=== PATIENT | male | born 1970 | race Caucasian/White ===

== ENCOUNTER 2016-09-18 13:38 | Inpatient (IN) | payer OTHER ==
[2016-09-18 15:27] VITALS: BMI 20.9
--- NOTE | 2016-09-18 17:05 | HP ---
CIWA Score - CIWA Score Nausea/Vomitin-Mild Nausea/No Vomiting Muscle Tremors: 4-Moderate,w/Arms Extend Anxiety: 4-Mod. Anxious/Guarded Agitation: 4-Moderately Restless Paroxysmal Sweats: 1-Minimal Palms Moist Orientation: 1-Uncertain about Date Tacttile Disturbances: 0-None Auditory Disturbances: 2-Mild Harshness/Frighten Visual Disturbances: 0-None Headache: 3-Moderate CIWA-Ar Total Score: 20 Admission ROS BHS - HPI Chief Complaint: withdrawal sx Allergies/Adverse Reactions: Allergies Allergy/AdvReac Type Severity Reaction Status Date / Time No Known Allergies Allergy Verified 09/18/16 16:00 History of Present Illness: 46 years old male with long history of alcohol cocaine marijuan nicotine dependence, has gerd and bipolar ii on methadone maintenance program 130 mg verification pending, is admitted to detox Exam Limitations: No Limitations - Ebola screening Have you traveled outside of the country in the last 21 days: No Have you had contact with anyone from an Ebola affected area: No Have you been sick,other than usual withdrawal symptoms: No Do you have a fever: No - Review of Systems Constitutional: Chills, Loss of Appetite, Changes in sleep, Unintentional Wgt. Loss, Unexplained wgt Loss EENT: reports: No Symptoms Reported Respiratory: reports: No Symptoms reported Cardiac: reports: No Symptoms Reported GI: reports: Nausea, Poor Appetite, Poor Fluid Intake, Indigestion, Abdominal cramping : reports: No Symptoms Reported Musculoskeletal: reports: Back Pain, Joint Pain, Muscle Pain, Neck Pain Integumentary: reports: Erythema (both hands) Neuro: reports: Seizure (about 25 seizure, last episode two months ago), Tremors Endocrine: reports: No Symptoms Reported Hematology: reports: No Symptoms Reported Psychiatric: reports: Judgement Intact, Anxious, Depressed Other Systems: Reviewed and Negative Patient History - Patient Medical History Hx Anemia: No Hx Asthma: No Hx Chronic Obstructive Pulmonary Disease (COPD): No Hx Cancer: No Hx Cardiac Disorders: No Hx Congestive Heart Failure: No Hx Hypertension: No Hx Hypercholesterolemia: No Hx Pacemaker: No HX Cerebrovascular Accident: No Hx Seizures: Yes (etoh seizures last 2 months ago) Hx Dementia: No Hx Diabetes: No Hx Gastrointestinal Disorders: No Hx Liver Disease: No Hx Genitourinary Disorders: No Hx Sexually Transmitted Disorders: No Hx Renal Disease (ESRD): No Hx Thyroid Disease: No Hx Human Immunodeficiency Virus (HIV): No (last 03/29) Hx Hepatitis C: No Hx Depression: No Hx Suicide Attempt: No Hx Bipolar Disorder: Yes Hx Schizophrenia: No - Patient Surgical History Past Surgical History: No - PPD History Previous Implant?: Yes Documented Results: Negative w/proof Implanted On Prior [facility] Admission?: Yes Date: 05/31/16 Results: 0 mm PPD to be Administered?: No - Smoking Cessation Smoking history: Current every day smoker Have you smoked in the past 12 months: Yes Aproximately how many cigarettes per day: 20 Cigars Per Day: 0 Hx Chewing Tobacco Use: No Initiated information on smoking cessation: Yes 'Breaking Loose' booklet given: 09/18/16 - Substance & Tx. History Hx Alcohol Use: Yes Hx Substance Use: Yes Substance Use Type: Alcohol, Cocaine, Heroin, Marijuana Hx Substance Use Treatment: Yes - Substances Abused Alcohol Route: Oral Frequency: Daily Amount used: 12-15 beersx 24oz Age of first use: 14 Date of Last Use: 09/18/16 Cocaine Route: Inhalation Frequency: 1-2 times per week Amount used: $100 and up Age of first use: 17 Date of Last Use: 09/16/16 Marijuana/Hashish Route: Smoking Frequency: 1-3 times last 30 days Amount used: 1 joint Age of first use: 14 Date of Last Use: 09/18/16 Family Disease History - Family Disease History Family Disease History: Other: Grandparent (alcohol,), Father (alcohol, ) Admission Physical Exam S - Vital Signs Vital Signs: Vital Signs - 24 hr 09/18/16 15:26 Temperature 97.3 F L Pulse Rate 81 Respiratory 18 Rate Blood Pressure 117/63 - Physical General Appearance: Yes: Appropriately Dressed, Moderate Distress, Thin, Tremorous, Irritable, Sweating, Anxious HEENTM: Yes: Hearing grossly Normal, Normal ENT Inspection, Normocephalic, Normal Voice Respiratory: Yes: Chest Non-Tender, Lungs Clear, Normal Breath Sounds, No Respiratory Distress, No Accessory Muscle Use Neck: Yes: Supple, Trachea in good position Breast: Yes: Breasts Symetrical, Surgical Scar Cardiology: Yes: Regular Rhythm, S1, S2 Abdominal: Yes: Non Tender, Soft Genitourinary: Yes: Within Normal Limits Back: Yes: Normal Inspection Musculoskeletal: Yes: full range of Motion, Gait Steady Extremities: Yes: Normal Range of Motion, Non-Tender, Tremors Neurological: Yes: Alert, Motor Strength 5/5, Normal Response, Depressed Affect Integumentary: Yes: Warm Lymphatic: Yes: Within Normal Limits - Diagnostic (1) Alcohol dependence with uncomplicated withdrawal Current Visit: Yes Status: Acute (2) Methadone maintenance therapy patient Current Visit: Yes Status: Acute Comment: 130 mg verificaiton pending (3) Nicotine dependence Current Visit: Yes Status: Acute Qualifiers: Nicotine product type: cigarettes Substance use status: in withdrawal Qualified Code(s): F17.213 - Nicotine dependence, cigarettes, with withdrawal (4) GERD (gastroesophageal reflux disease) Current Visit: Yes Status: Acute Qualifiers: Esophagitis presence: without esophagitis Qualified Code(s): K21.9 - Gastro-esophageal reflux disease without esophagitis (5) Bipolar II disorder Current Visit: Yes Status: Suspected Comment: pinky (6) Cocaine dependence, uncomplicated Current Visit: Yes Status: Chronic (7) Cannabis dependence, uncomplicated Current Visit: Yes Status: Chronic (8) Alcohol related seizure Current Visit: Yes Status: Chronic Comment: x 25 by history last episode 2 months ago begin neurontin (9) Neuropapillitis Current Visit: Yes Status: Acute Comment: arms and legs alcohol related begin neurontin Cleared for Admission [facility] - Detox or Rehab [facility] Level of Care: Medically Managed Detox Regimen/Protocol: Valium [facility] Breath Alcohol Content Breath Alcohol Content: 0 Urine Drug Screen - Results Drug Screen Negative: No Urine Drug Screen Results: THC-Marijuana, JAXON-Cocaine, MTD-Methadone
[2016-09-18] MEDS ORDERED: MENTHOL/PHENOL 1 EACH UD MM PRN (17:09)
[2016-09-18] MEDS ORDERED: diphenhydrAMINE HCL 50 MG CAPSULE PO PRN (17:09)
[2016-09-18] MEDS ORDERED: MAGNESIUM CITRATE 300 ML BOTTLE PO PRN (17:09)
[2016-09-18] MEDS ORDERED: guaiFENesin/D-METHORPHAN HB 10 ML UNIT-DOSE CUPS PO PRN (17:09)
[2016-09-18] MEDS ORDERED: MAGNESIUM HYDROX 2400MG/30ML ORAL SUSPENSION 30 ML CUP PO PRN (17:09)
[2016-09-18] MEDS ORDERED: ACETAMINOPHEN 325 MG TABLET (FP) PO PRN (17:09)
[2016-09-18] MEDS ORDERED: P-EPHED 60MG/TRIPROLIDI 2.5MG TABLET PO PRN (17:09)
[2016-09-18] MEDS ORDERED: MAG HYDROX/AL HYDROX/SIMETH 30 ML UNIT-DOSE CUP PO PRN (17:09)
[2016-09-18] MEDS ORDERED: LOPERAMIDE HCL 2 MG CAPSULE PO PRN (17:09)
[2016-09-18] MEDS ORDERED: diazePAM 5 MG TABLET PO ONE (18:15)
[2016-09-18] MEDS: cloNIDine HCL 0.1 MG TABLET PO PRN (19:05)
[2016-09-18] MEDS: NICOTINE POLACRILEX 4 MG GUM BC PRN ×2 (19:31→22:34)
[2016-09-18] MEDS: THIAMINE HCL 100 MG TABLET (FP) PO SCH (22:32)
[2016-09-18] MEDS: RANITIDINE HCL 150 MG TABLET (FP) PO SCH (22:32)
[2016-09-18] MEDS: GABAPENTIN 100 MG CAPSULE (FP) PO SCH (22:32)
[2016-09-18] MEDS: diazePAM 5 MG TABLET PO SCH (22:32)
[2016-09-19] MEDS: diazePAM 5 MG TABLET PO PRN ×3 (02:09→17:30)
[2016-09-19] MEDS: GABAPENTIN 100 MG CAPSULE (FP) PO SCH ×3 (05:56→22:59)
[2016-09-19] MEDS: diazePAM 5 MG TABLET PO SCH ×3 (05:56→22:59)
[2016-09-19] MEDS ORDERED: METHADONE HCL 40 MG DISPERSABLE TABLET PO SCH (08:00)
--- NOTE | 2016-09-19 08:57 | CONSULT ---
[facility] Psychiatric Consult - Data Date of interview: 09/19/16 Admission source: [facility] Identifying data: This is 46 years old male with history of MDD, Bipol;ar disorder, intoxicated with : Alcohol, Cannbais, Nicotine, Opioids Substance Abuse History: - Smoking Cessation. Smoking history: Current every day smoker. Have you smoked in the past 12 months: Yes. Aproximately how many cigarettes per day: 20. Cigars Per Day: 0. Hx Chewing Tobacco Use: No. Initiated information on smoking cessation: Yes. 'Breaking Loose' booklet given : 09/18/16. - Substance & Tx. History. Hx Alcohol Use: Yes. Hx Substance Use : Yes. Substance Use Type: Alcohol, Cocaine, Heroin, Marijuana. Hx Substance Use Treatment: Yes. - Substances Abused. Alcohol. Route: Oral. Frequency : Daily. Amount used: 12-15 beersx 24oz. Age of first use: 14. Date of Last Use: 09/18/16. Cocaine. Route: Inhalation. Frequency: 1-2 times per week. Amount used: $100 and up. Age of first use: 17. Date of Last Use: 09/16/16. Marijuana/Hashish. Route: Smoking. Frequency: 1-3 times last 30 days. Amount used: 1 joint. Age of first use: 14. Date of Last Use: 09/18/16 Medical History: MMTO, GERD, neurosyphilis history Psychiatric History: Patient reports history of MDD and Bipolar disorder with most recent posychiatric hospitalization on more then 5 years ago, reports currently stable on: Abilify 10mg poqd. Celexa 40mg poqd Physical/Sexual Abuse/Trauma History: Denies Additional Comment: Abilify 10mg poqd. Celexa 40mg poqd Mental Status Exam - Mental Status Exam Alert and Oriented to: Person Cognitive Function: Fair Patient Appearance: Well Groomed, Unkempt Mood: Angry Affect: Flat Patient Behavior: Sedated Speech Pattern: Appropriate, Delayed Voice Loudness: Normal Thought Process: Goal Oriented Thought Disorder: Being Controlled Hallucinations: Denies Suicidal Ideation: Denies Homicidal Ideation: Denies Insight/Judgement: Fair Sleep: Difficulty falling asleep Appetite: Weight loss Muscle strength/Tone: Normal Gait/Station: Normal Additional Comments: Abilify 10mg poqd. Celexa 40mg poqd Psychiatric Findings - Problem List ([place] 1, 2,3) (1) Alcohol dependence with uncomplicated withdrawal Current Visit: Yes Status: Acute (2) Methadone maintenance therapy patient Current Visit: Yes Status: Acute Comment: 130 mg verificaiton pending (3) Nicotine dependence Current Visit: Yes Status: Acute Qualifiers: Nicotine product type: cigarettes Substance use status: in withdrawal Qualified Code(s): F17.213 - Nicotine dependence, cigarettes, with withdrawal (4) Alcohol related seizure Current Visit: Yes Status: Chronic Comment: x 25 by history last episode 2 months ago begin neurontin (5) Cannabis dependence, uncomplicated Current Visit: Yes Status: Chronic (6) Cocaine dependence, uncomplicated Current Visit: Yes Status: Chronic (7) Bipolar II disorder Current Visit: Yes Status: Suspected Comment: pinky (8) Cocaine dependence Current Visit: No Status: Acute (9) MDD (major depressive disorder) Current Visit: No Status: Acute (10) Substance-induced sleep disorder Current Visit: No Status: Acute (11) Substance induced mood disorder Current Visit: No Status: Suspected - Initial Treatment Plan Initial Treatment Plan: Abilify 10mg poqd. Celexa 40mg poqd
[2016-09-19] MEDS ORDERED: METHADONE HCL 10 MG TABLET ONE (09:43)
[2016-09-19] MEDS ORDERED: METHADONE HCL 40 MG DISPERSABLE TABLET ONE (09:43)
--- NOTE | 2016-09-19 10:00 | PN ---
S CIWA - CIWA Score Nausea/Vomitin Muscle Tremors: 3 Anxiety: 3 Agitation: 2 Paroxysmal Sweats: 1-Minimal Palms Moist Orientation: 0-Oriented Tacttile Disturbances: 1-Very Mild Itch/Numbness Auditory Disturbances: 1-Very Mild Visual Disturbances: 1-Very Mild Sensitivity Headache: 2-Mild CIWA-Ar Total Score: 17 BHS Progress Note (SOAP) Subjective: ALERT,IRRITABLE,ANXIOUS,INTERRUPTED SLEEP,TREMOR,PAIN IN THE BODY AND BACK Objective: 09/19/16 09:58 Vital Signs Temperature 97.2 F L 09/19/16 09:43 Pulse Rate 71 09/19/16 09:43 Respiratory Rate 18 09/19/16 09:43 Blood Pressure 108/70 09/19/16 09:43 O2 Sat by Pulse Oximetry (%) EKG NSR,NORMAL ECG LABS PENDING Assessment: 09/19/16 09:59 WITHDRAWAL SYMPTOM Plan: CONTINUE DETOX
[2016-09-19 10:08] LABS: MCH 30.5 pg (25.7-33.7); MCHC 32.8 g/dl (32.0-35.9); MEAN CELL VOLUME 93.2 fl (80-96); MEAN PLT VOLUME 9.7 fl (7.5-11.1); PLATELET COUNT 158 K/MM3 (134-434); RDW 14.1 % (11.9-15.9)
[2016-09-19 10:09] LABS: ALBUMIN 3.2 g/dl (3.4-5.0); ALK PHOS 61 U/L (45-117); ANION GAP 7 (8-16); BILIRUBIN,TOTAL 0.3 mg/dL (0.2-1.0); CALCIUM 9.2 mg/dL (8.5-10.1); CO2 29 mmol/L (21-32); CREATININE 0.9 mg/dL (0.7-1.3); GLUCOSE,RANDOM 110 mg/dL (74-106); SGOT/AST 9 U/L (15-37); SGPT/ALT 13 U/L (12-78); TOT PROT 6.2 g/dl (6.4-8.2)
[2016-09-19] MEDS: NICOTINE 21 MG/24 HOURS TOPICAL PATCH TD SCH (10:52)
[2016-09-19] MEDS: PRENATAL VITAMINS W/ FOLIC ACID TABLET (FP) PO SCH (10:53)
[2016-09-19] MEDS: CITALOPRAM HYDROBROMIDE 20 MG TABLET (FP) PO SCH (10:53)
[2016-09-19] MEDS: METHADONE 120 MG, METHADONE 10 MG PO SCH (10:54)
[2016-09-19] MEDS: ARIPiprazole 10 MG TABLET PO SCH (10:54)
[2016-09-19] MEDS: RANITIDINE HCL 150 MG TABLET (FP) PO SCH ×2 (10:54→22:59)
[2016-09-19] MEDS: cloNIDine HCL 0.1 MG TABLET PO PRN ×2 (12:35→22:59)
--- NOTE | 2016-09-19 15:58 | EKG ---
Test Reason : Blood Pressure : / mmHG Vent. Rate : 071 BPM Atrial Rate : 071 BPM P-R Int : 174 ms QRS Dur : 100 ms QT Int : 414 ms P-R-T Axes : 052 061 042 degrees QTc Int : 449 ms NORMAL SINUS RHYTHM NORMAL ECG NO PREVIOUS ECGS AVAILABLE Confirmed by EMILI NAJERA MD ([id number]) on 09/19/2016 3:58:17 PM Referred By: Confirmed By:EMILI NAJERA MD
[2016-09-19] MEDS: THIAMINE HCL 100 MG TABLET (FP) PO SCH (22:59)
[2016-09-20] MEDS: diazePAM 5 MG TABLET PO PRN ×2 (02:56→18:08)
[2016-09-20] MEDS ORDERED: METHADONE HCL 40 MG DISPERSABLE TABLET ONE (05:10)
[2016-09-20] MEDS ORDERED: METHADONE HCL 10 MG TABLET ONE (05:10)
[2016-09-20] MEDS: GABAPENTIN 100 MG CAPSULE (FP) PO SCH ×3 (05:51→22:42)
[2016-09-20] MEDS: METHADONE 120 MG, METHADONE 10 MG PO SCH (05:51)
[2016-09-20] MEDS ORDERED: CYCLOBENZAPRINE HCL 10 MG TABLET (FP) PO PRN (10:26)
[2016-09-20] MEDS ORDERED: CYCLOBENZAPRINE HCL 10 MG TABLET (FP) PO ONE (10:26)
--- NOTE | 2016-09-20 10:26 | PN ---
[facility] CIWA - CIWA Score Nausea/Vomitin Muscle Tremors: 3 Anxiety: 3 Agitation: 2 Paroxysmal Sweats: 1-Minimal Palms Moist Orientation: 0-Oriented Tacttile Disturbances: 1-Very Mild Itch/Numbness Auditory Disturbances: 1-Very Mild Visual Disturbances: 1-Very Mild Sensitivity Headache: 2-Mild CIWA-Ar Total Score: 17 BHS Progress Note (SOAP) Subjective: ALERT,IRRITABLE,ANXIOUS,INTERRUPTED SLEEP,TREMOR,PAIN IN THE BODY AND BACK Objective: 09/20/16 10:25 Vital Signs Temperature 99.3 F 09/20/16 10:00 Pulse Rate 83 09/20/16 10:00 Respiratory Rate 18 09/20/16 10:00 Blood Pressure 102/72 09/20/16 10:00 O2 Sat by Pulse Oximetry (%) Laboratory Last Values WBC 7.0 K/mm3 (4.0-10.0) D 09/19/16 07:00 RBC 4.30 M/mm3 (4.00-5.60) 09/19/16 07:00 Hgb 13.1 GM/dL (11.7-16.9) 09/19/16 07:00 Hct 40.1 % (35.4-49) 09/19/16 07:00 MCV 93.2 fl (80-96) 09/19/16 07:00 MCHC 32.8 g/dl (32.0-35.9) 09/19/16 07:00 RDW 14.1 % (11.9-15.9) 09/19/16 07:00 Plt Count 158 K/MM3 (134-434) 09/19/16 07:00 MPV 9.7 fl (7.5-11.1) 09/19/16 07:00 Sodium 141 mmol/L (136-145) 09/19/16 07:00 Potassium 4.0 mmol/L (3.5-5.1) 09/19/16 07:00 Chloride 105 mmol/L (98-107) 09/19/16 07:00 Carbon Dioxide 29 mmol/L (21-32) 09/19/16 07:00 Anion Gap 7 (8-16) L 09/19/16 07:00 BUN 16 mg/dL (7-18) 09/19/16 07:00 Creatinine 0.9 mg/dL (0.7-1.3) 09/19/16 07:00 Creat Clearance w eGFR > 60 (>60) 09/19/16 07:00 Random Glucose 110 mg/dL (74-106) H D 09/19/16 07:00 Calcium 9.2 mg/dL (8.5-10.1) 09/19/16 07:00 Total Bilirubin 0.3 mg/dL (0.2-1.0) D 09/19/16 07:00 AST 9 U/L (15-37) L D 09/19/16 07:00 ALT 13 U/L (12-78) D 09/19/16 07:00 Alkaline Phosphatase 61 U/L (45-117) D 09/19/16 07:00 Total Protein 6.2 g/dl (6.4-8.2) L 09/19/16 07:00 Albumin 3.2 g/dl (3.4-5.0) L 09/19/16 07:00 RPR Titer Nonreactive (NONREACTIVE) 09/19/16 07:00 Assessment: 09/20/16 10:25 WITHDRAWAL SYMPTOM Plan: CONTINUE DETOX
[2016-09-20] MEDS: NICOTINE 21 MG/24 HOURS TOPICAL PATCH TD SCH (10:57)
[2016-09-20] MEDS: PRENATAL VITAMINS W/ FOLIC ACID TABLET (FP) PO SCH (10:58)
[2016-09-20] MEDS: cloNIDine HCL 0.1 MG TABLET PO PRN (11:01)
[2016-09-20] MEDS: diazePAM 5 MG TABLET PO SCH ×2 (11:02→22:42)
[2016-09-20] MEDS: hydrOXYzine PAMOATE 50 MG CAPSULE (FP) PO PRN (11:02)
[2016-09-20] MEDS: ARIPiprazole 10 MG TABLET PO SCH (11:02)
[2016-09-20] MEDS: CITALOPRAM HYDROBROMIDE 20 MG TABLET (FP) PO SCH (11:02)
[2016-09-20] MEDS: RANITIDINE HCL 150 MG TABLET (FP) PO SCH ×2 (11:02→22:42)
[2016-09-20] MEDS ORDERED: cloNIDine HCL 0.1 MG TABLET PO ONE (11:32)
[2016-09-20 13:32] LABS: URINE APPEARANCE CLEAR; URINE BILIRUBIN NEGATIVE (NEGATIVE); URINE BLOOD NEGATIVE (NEGATIVE); URINE COLOR LTYELLOW; URINE GLUCOSE (UA) NEGATIVE (NEGATIVE); URINE KETONE NEGATIVE (NEGATIVE); URINE NITRITE NEGATIVE (NEGATIVE); URINE PROTEIN NEGATIVE (NEGATIVE); URINE UROBILINOGEN NEGATIVE E.U./dl (0.2-1.0)
[2016-09-20 13:39] LABS: URINE LEUK ESTERASE TRACE (NEGATIVE)
[2016-09-20] MEDS: THIAMINE HCL 100 MG TABLET (FP) PO SCH (22:42)
[2016-09-21] MEDS: diazePAM 5 MG TABLET PO PRN ×3 (01:06→12:37)
[2016-09-21] MEDS ORDERED: METHADONE HCL 10 MG TABLET ONE (02:56)
[2016-09-21] MEDS ORDERED: METHADONE HCL 40 MG DISPERSABLE TABLET ONE (02:56)
[2016-09-21] MEDS: METHADONE 120 MG, METHADONE 10 MG PO SCH (05:55)
[2016-09-21] MEDS: GABAPENTIN 100 MG CAPSULE (FP) PO SCH ×3 (05:58→22:49)
[2016-09-21] MEDS: PRENATAL VITAMINS W/ FOLIC ACID TABLET (FP) PO SCH (11:09)
[2016-09-21] MEDS: RANITIDINE HCL 150 MG TABLET (FP) PO SCH ×2 (11:09→22:49)
[2016-09-21] MEDS: diazePAM 5 MG TABLET PO SCH ×2 (11:09→22:49)
[2016-09-21] MEDS: ARIPiprazole 10 MG TABLET PO SCH (11:10)
[2016-09-21] MEDS: CITALOPRAM HYDROBROMIDE 20 MG TABLET (FP) PO SCH (11:10)
[2016-09-21] MEDS: NICOTINE 21 MG/24 HOURS TOPICAL PATCH TD SCH (11:11)
[2016-09-21] MEDS: cloNIDine HCL 0.1 MG TABLET PO SCH ×3 (11:11→22:51)
--- NOTE | 2016-09-21 14:39 | PN ---
[facility] Progress Note (SOAP) Subjective: Sweating,interrupted sleep,restless Objective: 09/21/16 14:38 Vital Signs - 8 hr 09/21/16 10:00 Temperature 98.2 F Pulse Rate 85 Respiratory 16 Rate Blood Pressure 106/57 Laboratory Tests 09/19/16 09/19/16 09/19/16 07:00 07:00 07:00 WBC 7.0 D RBC 4.30 Hgb 13.1 Hct 40.1 MCV 93.2 MCHC 32.8 RDW 14.1 Plt Count 158 MPV 9.7 Sodium 141 Potassium 4.0 Chloride 105 Carbon Dioxide 29 Anion Gap 7 L BUN 16 Creatinine 0.9 Creat Clearance w eGFR > 60 Random Glucose 110 H D Calcium 9.2 Total Bilirubin 0.3 D AST 9 L D ALT 13 D Alkaline Phosphatase 61 D Total Protein 6.2 L Albumin 3.2 L Urine Color Urine Appearance Urine pH Ur Specific [place] Urine Protein Urine Glucose (UA) Urine Ketones Urine Blood Urine Nitrite Urine Bilirubin Urine Urobilinogen Ur Leukocyte Esterase RPR Titer Nonreactive 09/20/16 10:20 WBC RBC Hgb Hct MCV MCHC RDW Plt Count MPV Sodium Potassium Chloride Carbon Dioxide Anion Gap BUN Creatinine Creat Clearance w eGFR Random Glucose Calcium Total Bilirubin AST ALT Alkaline Phosphatase Total Protein Albumin Urine Color Ltyellow Urine Appearance Clear Urine pH 7.0 D Ur Specific [place] 1.016 Urine Protein Negative Urine Glucose (UA) Negative Urine Ketones Negative Urine Blood Negative Urine Nitrite Negative Urine Bilirubin Negative Urine Urobilinogen Negative Ur Leukocyte Esterase Trace H RPR Titer labs noted Assessment: 09/21/16 14:39 Withdrawal sx. Plan: Continue detox
[2016-09-21] MEDS: hydrOXYzine PAMOATE 50 MG CAPSULE (FP) PO PRN ×2 (15:02→18:08)
[2016-09-21] MEDS: THIAMINE HCL 100 MG TABLET (FP) PO SCH (22:49)
[2016-09-21] MEDS: cloNIDine HCL 0.1 MG TABLET PO PRN (22:51)
[2016-09-22] MEDS ORDERED: METHADONE HCL 40 MG DISPERSABLE TABLET ONE (04:24)
[2016-09-22] MEDS ORDERED: METHADONE HCL 10 MG TABLET ONE (04:24)
[2016-09-22] MEDS: GABAPENTIN 100 MG CAPSULE (FP) PO SCH (05:14)
[2016-09-22] MEDS: METHADONE 120 MG, METHADONE 10 MG PO SCH (05:14)
[2016-09-22] MEDS: hydrOXYzine PAMOATE 50 MG CAPSULE (FP) PO PRN (05:32)
[2016-09-22 06:14] VITALS: BP 145/81; PULSE 78; TEMP 97.3
--- NOTE | 2016-09-22 08:24 | PN ---
S Progress Note (SOAP) Subjective: ALERT,NO COMPLAINT Objective: 09/22/16 08:23 Vital Signs Temperature 97.3 F L 09/22/16 06:00 Pulse Rate 78 09/22/16 06:00 Respiratory Rate 18 09/22/16 06:00 Blood Pressure 145/81 09/22/16 06:00 O2 Sat by Pulse Oximetry (%) Assessment: 09/22/16 08:23 DETOX COMPLETED,NO WITHDRAWAL SYMPTOM Plan: DISCHARGE TO,FOLLOW UP WITH AFTER CARE PROGRAM ARRANGEMENT
--- NOTE | 2016-09-22 08:34 | DS ---
[facility] Detox Discharge Summary Admission Date: 09/18/16 Discharge Date: 09/22/16 - History Present History: Alcohol Dependence, Cannabis Dependence, Cocaine Dependence, MMTP Additional Comments: FOLLOW UP WITH AFTER CARE PROGRAM ARRANGEMENT,PATIENT HAS OWN MEDICATIONS AT HOME,FOLLOW UP WITH METHADONE CLINIC AND PMD FOR MEDICAL FOLLOW UP Pertinent Past History: SEIZRE BIPOLAR DISORDER - Physical Exam Results Vital Signs: Vital Signs Temperature 97.3 F L 09/22/16 06:00 Pulse Rate 78 09/22/16 06:00 Respiratory Rate 18 09/22/16 06:00 Blood Pressure 145/81 09/22/16 06:00 O2 Sat by Pulse Oximetry (%) Pertinent Admission Physical Exam Findings: WITHDRAWAL SYMPTOM - Treatment Hospital Course: Detox Protocol Followed, Detoxed Safely, Responded well, Discharged Condition Good Patient has Accepted a Rehab Referral to: DECLINED - Medication Discharge Medications: Ambulatory Orders Citalopram Hydrobromide [Celexa -] 40 mg PO DAILY 05/29/16 Aripiprazole [Abilify -] 10 mg PO DAILY 09/18/16 Clonidine HCl [Catapres -] 0.1 mg PO DAILY 09/18/16 Clonidine HCl [Catapres -] 0.3 mg PO HS 09/18/16 Aripiprazole [Abilify -] 10 mg PO DAILY #30 tablet 09/19/16 Citalopram Hydrobromide [Celexa -] 40 mg PO DAILY #30 tablet 09/19/16 - AMA Did Patient Leave Against Medical Advice: No
[2016-09-22] MEDS: cloNIDine HCL 0.1 MG TABLET PO SCH (09:31)
[2016-09-22] MEDS: ARIPiprazole 10 MG TABLET PO SCH (09:31)
[2016-09-22] MEDS: RANITIDINE HCL 150 MG TABLET (FP) PO SCH (09:31)
[2016-09-22] MEDS: PRENATAL VITAMINS W/ FOLIC ACID TABLET (FP) PO SCH (09:31)
[2016-09-22] MEDS: CITALOPRAM HYDROBROMIDE 20 MG TABLET (FP) PO SCH (09:31)
[2016-09-22] MEDS: NICOTINE 21 MG/24 HOURS TOPICAL PATCH TD SCH (09:32)
[2016-09-22] MEDS ORDERED: diazePAM 5 MG TABLET PO SCH (10:00)
== END 2016-09-22 09:52 | disposition home or self-care (01) | DRG 773 ==
LOC: YASAS 13:38 → Y6N 17:16
PROVIDERS: ADMIT Internal Medicine Addiction Medicine; ATTEND Internal Medicine Addiction Medicine
PROC: HZ2ZZZZ Detoxification Services for Substance Abuse Treatment (ICD-10-PCS; principal; 2016-09-22)
DX: F11.20 Opioid dependence, uncomplicated (principal); F10.230 Alcohol dependence with withdrawal, uncomplicated; F14.20 Cocaine dependence, uncomplicated; F12.20 Cannabis dependence, uncomplicated; F17.213 Nicotine dependence, cigarettes, with withdrawal; F19.24 Other psychoactive substance dependence with psychoactive substance-induced mood disorder; F19.282 Other psychoactive substance dependence with psychoactive substance-induced sleep disorder; F31.81 Bipolar II disorder; G40.509 Epileptic seizures related to external causes, not intractable, without status epilepticus; K21.9 Gastro-esophageal reflux disease without esophagitis; G62.1 Alcoholic polyneuropathy
CPT/HCPCS: 36415; 80053; 81003; 81015; 85027; 86593; 93005; 93010

== ENCOUNTER 2016-11-22 10:14 | Inpatient (IN) | payer OTHER ==
[2016-11-22 12:21] VITALS: BMI 20.9
--- NOTE | 2016-11-22 13:02 | HP ---
CIWA Score - CIWA Score Nausea/Vomitin-Int. Nausea w/Dry Heave Muscle Tremors: 4-Moderate,w/Arms Extend Anxiety: 4-Mod. Anxious/Guarded Agitation: 4-Moderately Restless Paroxysmal Sweats: 1-Minimal Palms Moist Orientation: 0-Oriented Tacttile Disturbances: 3-Moderate Itch/Numb/Burn Auditory Disturbances: 0-None Visual Disturbances: 0-None Headache: 1-Very Mild CIWA-Ar Total Score: 21 Admission ROS S - HPI Chief Complaint: DETOX TX FOR ALCOHOL DEPENDENCE Allergies/Adverse Reactions: Allergies Allergy/AdvReac Type Severity Reaction Status Date / Time No Known Allergies Allergy Verified 11/22/16 12:35 History of Present Illness: 46 Y/O MALE WITH A HX OF ALCOHOL, COCAINE AND MARIJUANA DEPENDENCE SEEKING DETOX TX. Exam Limitations: No Limitations - Ebola screening Have you traveled outside of the country in the last 21 days: No (N) Have you had contact with anyone from an Ebola affected area: No Have you been sick,other than usual withdrawal symptoms: No Do you have a fever: No - Review of Systems Constitutional: Chills, Loss of Appetite, Night Sweats, Changes in sleep, Unintentional Wgt. Loss EENT: reports: Dental Problems (MISSING TEETH) Respiratory: reports: No Symptoms reported Cardiac: reports: Lightheadedness GI: reports: Constipated, Diarrhea, Nausea, Poor Appetite, Poor Fluid Intake, Vomiting : reports: No Symptoms Reported Musculoskeletal: reports: Back Pain, Joint Pain, Muscle Pain Integumentary: reports: No Symptoms Reported Neuro: reports: Headache, Numbness, Seizure (DUE TO ALCOHOL WITHDRAWALS,LAST EISODE IN 2016), Tingling, Tremors, Dizziness Endocrine: reports: No Symptoms Reported Hematology: reports: No Symptoms Reported Psychiatric: reports: Orientated x3, Anxious, Depressed Other Systems: Reviewed and Negative Patient History - Patient Medical History Hx Anemia: No Hx Asthma: No Hx Chronic Obstructive Pulmonary Disease (COPD): No Hx Cancer: No Hx Cardiac Disorders: No Hx Congestive Heart Failure: No Hx Hypertension: Yes (ON CLONIDINE 0.3 MG HS/0.1 MG PO DAILY.) Hx Hypercholesterolemia: No Hx Pacemaker: No HX Cerebrovascular Accident: No Hx Seizures: Yes (ALCOHOL WITHDRAWALS, LAST EPISODE IN 2016 ) Hx Dementia: No Hx Diabetes: No Hx Gastrointestinal Disorders: Yes (GERD-ON PPI) Hx Liver Disease: No Hx Genitourinary Disorders: No Hx Sexually Transmitted Disorders: No Hx Renal Disease (ESRD): No Hx Thyroid Disease: No Hx Human Immunodeficiency Virus (HIV): No (NEGATIVE HX) Hx Hepatitis C: Yes (RESOLVED PER PT) Hx Depression: Yes (ON MED) Hx Suicide Attempt: No Hx Bipolar Disorder: Yes Hx Schizophrenia: No - Patient Surgical History Past Surgical History: No Hx Neurologic Surgery: No Hx Cataract Extraction: No Hx Cardiac Surgery: No Hx Lung Surgery: No Hx Breast Surgery: No Hx Breast Biopsy: No Hx Abdominal Surgery: No Hx Appendectomy: No Hx Cholecystectomy: No Hx Genitourinary Surgery: No Hx Orthopedic Surgery: No Anesthesia Reaction: No - PPD History Previous Implant?: Yes Documented Results: Negative w/proof Implanted On Prior R Admission?: Yes Date: 05/31/16 Results: 0 mm PPD to be Administered?: No - Reproductive History Patient is a Female of Child Bearing Age (11 -55 yrs old): No (MALE) - Smoking Cessation Smoking history: Current every day smoker Have you smoked in the past 12 months: Yes Aproximately how many cigarettes per day: 20 Cigars Per Day: 0 Hx Chewing Tobacco Use: No Initiated information on smoking cessation: Yes 'Breaking Loose' booklet given: 11/22/16 - Substance & Tx. History Hx Alcohol Use: Yes (BEER/LIQUOR(SOMETIMES) Hx Substance Use: Yes (COCAINE) Substance Use Type: Alcohol, Cocaine, Marijuana Hx Substance Use Treatment: Yes ([facility]) - Substances Abused Alcohol Route: Oral Frequency: Daily Amount used: 10-15 BEERS Age of first use: 14 Date of Last Use: 11/21/16 Cocaine Route: Smoking Frequency: Daily Amount used: $50 Age of first use: 19 Date of Last Use: 11/21/16 Marijuana/Hashish Route: Smoking Frequency: 1-2 times per week Amount used: 1 JOINT Age of first use: 14 Date of Last Use: 11/21/16 Family Disease History - Family Disease History Family Disease History: Other: Grandparent (alcohol,), Father (alcohol, ) Admission Physical Exam [facility] - Vital Signs Vital Signs: Vital Signs - 24 hr 11/22/16 12:16 Temperature 97 F L Pulse Rate 75 Respiratory 20 Rate Blood Pressure 142/80 - Physical General Appearance: Yes: Moderate Distress, Irritable, Anxious, Other (SCARS ON FACE FROM FALL DUE TO SEIZURE EPISODE PER PATIENT) HEENTM: Yes: EOMI, Normocephalic, TO, Pharynx Normal Respiratory: Yes: Chest Non-Tender, Lungs Clear, Normal Breath Sounds, No Respiratory Distress Neck: Yes: Supple, Trachea in good position Breast: Yes: Breast Exam Deferred Cardiology: Yes: Regular Rhythm, Regular Rate, S1, S2 Abdominal: Yes: Normal Bowel Sounds, Non Tender, Flat, Soft Genitourinary: Yes: Other (N/C) Musculoskeletal: Yes: full range of Motion, Gait Steady Extremities: Yes: Normal Range of Motion, Non-Tender, Tremors Neurological: Yes: eyeglass frames polisher II-XII NML intact, Fully Oriented, Alert, Motor Strength 5/5 Integumentary: Yes: Dry, Warm Lymphatic: Yes: Within Normal Limits - Diagnostic (1) Alcohol dependence with uncomplicated withdrawal Current Visit: Yes Status: Acute (2) GERD (gastroesophageal reflux disease) Current Visit: Yes Status: Chronic Qualifiers: Esophagitis presence: without esophagitis Qualified Code(s): K21.9 - Gastro-esophageal reflux disease without esophagitis (3) Methadone maintenance therapy patient Current Visit: Yes Status: Chronic Comment: 130 mg verificaiton pending (4) Nicotine dependence Current Visit: Yes Status: Acute Qualifiers: Nicotine product type: cigarettes Substance use status: in withdrawal Qualified Code(s): F17.213 - Nicotine dependence, cigarettes, with withdrawal (5) Alcohol related seizure Current Visit: Yes Status: Suspected Comment: LAST EPISODE 2016 (6) Cannabis dependence, uncomplicated Current Visit: Yes Status: Acute (7) Cocaine dependence, uncomplicated Current Visit: Yes Status: Acute (8) Hypertension Current Visit: Yes Status: Chronic Qualifiers: Hypertension type: unspecified secondary hypertension Qualified Code (s): I15.9 - Secondary hypertension, unspecified; I15 - Secondary hypertension Cleared for Admission [facility] - Detox or Rehab [facility] Level of Care: Medically Managed Detox Regimen/Protocol: Librium S Breath Alcohol Content Breath Alcohol Content: 0 Urine Drug Screen - Results Drug Screen Negative: No Urine Drug Screen Results: THC-Marijuana, JAXON-Cocaine, MTD-Methadone
[2016-11-22] MEDS ORDERED: ACETAMINOPHEN 325 MG TABLET (FP) PO PRN (13:10)
[2016-11-22] MEDS ORDERED: guaiFENesin/D-METHORPHAN HB 10 ML UNIT-DOSE CUPS PO PRN (13:10)
[2016-11-22] MEDS ORDERED: NICOTINE POLACRILEX 4 MG GUM BUC PRN (13:10)
[2016-11-22] MEDS ORDERED: MAGNESIUM CITRATE 300 ML BOTTLE PO PRN (13:10)
[2016-11-22] MEDS ORDERED: MAG HYDROX/AL HYDROX/SIMETH 30 ML UNIT-DOSE CUP PO PRN (13:10)
[2016-11-22] MEDS ORDERED: MAGNESIUM HYDROX 2400MG/30ML ORAL SUSPENSION 30 ML CUP PO PRN (13:10)
[2016-11-22] MEDS ORDERED: LOPERAMIDE HCL 2 MG CAPSULE PO PRN (13:10)
[2016-11-22] MEDS ORDERED: MENTHOL/PHENOL 1 EACH UD MM PRN (13:10)
[2016-11-22] MEDS ORDERED: P-EPHED 60MG/TRIPROLIDI 2.5MG TABLET PO PRN (13:10)
[2016-11-22] MEDS ORDERED: chlordiazePOXIDE HCL 25 MG CAPSULE PO ONE (13:34)
[2016-11-22] MEDS: NICOTINE 21 MG/24 HOURS TOPICAL PATCH TD SCH (15:06)
[2016-11-22] MEDS: chlordiazePOXIDE HCL 25 MG CAPSULE PO SCH ×2 (17:22→22:11)
[2016-11-22 18:40] LABS: URINE APPEARANCE CLEAR; URINE BILIRUBIN NEGATIVE (NEGATIVE); URINE BLOOD NEGATIVE (NEGATIVE); URINE COLOR LTYELLOW; URINE GLUCOSE (UA) NEGATIVE (NEGATIVE); URINE KETONE NEGATIVE (NEGATIVE); URINE LEUK ESTERASE TRACE (NEGATIVE); URINE NITRITE NEGATIVE (NEGATIVE); URINE PROTEIN NEGATIVE (NEGATIVE); URINE UROBILINOGEN NEGATIVE E.U./dl (0.2-1.0)
[2016-11-22 18:48] LABS: URINE MUCUS RARE; URINE WBC 1 /hpf (3-5)
[2016-11-22] MEDS: THIAMINE HCL 100 MG TABLET (FP) PO SCH (22:11)
[2016-11-22] MEDS: cloNIDine HCL 0.1 MG TABLET PO SCH (22:11)
[2016-11-22] MEDS: diphenhydrAMINE HCL 50 MG CAPSULE PO PRN (22:12)
[2016-11-23] MEDS ORDERED: METHADONE HCL 40 MG DISPERSABLE TABLET ONE (04:01)
[2016-11-23] MEDS ORDERED: METHADONE HCL 10 MG TABLET ONE (04:01)
[2016-11-23] MEDS: chlordiazePOXIDE HCL 25 MG CAPSULE PO SCH ×4 (05:11→22:08)
[2016-11-23] MEDS: METHADONE 160 MG, METHADONE 20 MG PO SCH (05:11)
[2016-11-23] MEDS ORDERED: METHADONE HCL 10 MG TABLET PO SCH (06:00)
[2016-11-23] MEDS: NICOTINE 21 MG/24 HOURS TOPICAL PATCH TD SCH (10:07)
[2016-11-23] MEDS: PRENATAL VITAMINS W/ FOLIC ACID TABLET (FP) PO SCH (10:08)
[2016-11-23] MEDS: hydrOXYzine PAMOATE 25 MG CAPSULE (FP) PO PRN ×2 (10:10→17:55)
[2016-11-23 10:31] LABS: MCH 30.5 pg (25.7-33.7); MCHC 33.5 g/dl (32.0-35.9); MEAN CELL VOLUME 90.9 fl (80-96); MEAN PLT VOLUME 9.8 fl (7.5-11.1); PLATELET COUNT 209 K/MM3 (134-434); RDW 13.8 % (11.9-15.9); WHITE BLOOD COUNT 7.7 K/mm3 (4.0-10.0)
[2016-11-23 10:55] LABS: ALBUMIN 3.8 g/dl (3.4-5.0); ALK PHOS 72 U/L (45-117); ANION GAP 9 (8-16); BILIRUBIN,TOTAL 0.6 mg/dL (0.2-1.0); CALCIUM 9.5 mg/dL (8.5-10.1); CO2 29 mmol/L (21-32); COCKROFT - GAULT 86.93; GLUCOSE,RANDOM 130 mg/dL (74-106); SGOT/AST 9 U/L (15-37); SGPT/ALT 13 U/L (12-78); TOT PROT 7.1 g/dl (6.4-8.2)
[2016-11-23] MEDS: CYCLOBENZAPRINE HCL 10 MG TABLET (FP) PO PRN (11:08)
[2016-11-23] MEDS: chlordiazePOXIDE HCL 25 MG CAPSULE PO PRN ×2 (13:59→19:09)
--- NOTE | 2016-11-23 15:57 | PN ---
[facility] CIWA - CIWA Score Nausea/Vomitin-No Nausea/No Vomiting Muscle Tremors: 4-Moderate,w/Arms Extend Anxiety: 4-Mod. Anxious/Guarded Agitation: 3 Paroxysmal Sweats: 4-Forehead w/Sweat Beads Orientation: 0-Oriented Tacttile Disturbances: 3-Moderate Itch/Numb/Burn Auditory Disturbances: 0-None Visual Disturbances: 0-None Headache: 3-Moderate CIWA-Ar Total Score: 21 BHS Progress Note (SOAP) Subjective: Interrupted Sleep, H/A, Body Aches, Sweating, Anxious, Tremors. Objective: PT. A & O X 3, OBSERVED AMBULATING ON UNIT. 11/23/16 15:55 Vital Signs Temperature 96.8 F L 11/23/16 13:23 Pulse Rate 66 11/23/16 13:23 Respiratory Rate 20 11/23/16 13:23 Blood Pressure 101/71 11/23/16 13:23 O2 Sat by Pulse Oximetry (%) Laboratory Last Values WBC 7.7 K/mm3 (4.0-10.0) 11/23/16 06:05 RBC 4.47 M/mm3 (4.00-5.60) 11/23/16 06:05 Hgb 13.6 GM/dL (11.7-16.9) 11/23/16 06:05 Hct 40.6 % (35.4-49) 11/23/16 06:05 MCV 90.9 fl (80-96) 11/23/16 06:05 MCHC 33.5 g/dl (32.0-35.9) 11/23/16 06:05 RDW 13.8 % (11.9-15.9) 11/23/16 06:05 Plt Count 209 K/MM3 (134-434) D 11/23/16 06:05 MPV 9.8 fl (7.5-11.1) 11/23/16 06:05 Sodium 140 mmol/L (136-145) 11/23/16 06:05 Potassium 4.1 mmol/L (3.5-5.1) 11/23/16 06:05 Chloride 102 mmol/L (98-107) 11/23/16 06:05 Carbon Dioxide 29 mmol/L (21-32) 11/23/16 06:05 Anion Gap 9 (8-16) 11/23/16 06:05 BUN 13 mg/dL (7-18) 11/23/16 06:05 Creatinine 1.0 mg/dL (0.7-1.3) 11/23/16 06:05 Creat Clearance w eGFR > 60 (>60) 11/23/16 06:05 Random Glucose 130 mg/dL (74-106) H 11/23/16 06:05 Calcium 9.5 mg/dL (8.5-10.1) 11/23/16 06:05 Total Bilirubin 0.6 mg/dL (0.2-1.0) D 11/23/16 06:05 AST 9 U/L (15-37) L 11/23/16 06:05 ALT 13 U/L (12-78) 11/23/16 06:05 Alkaline Phosphatase 72 U/L (45-117) 11/23/16 06:05 Total Protein 7.1 g/dl (6.4-8.2) 11/23/16 06:05 Albumin 3.8 g/dl (3.4-5.0) 11/23/16 06:05 Urine Color Ltyellow 11/22/16 15:00 Urine Appearance Clear 11/22/16 15:00 Urine pH 6.0 (5.0-8.0) 11/22/16 15:00 Ur Specific [place] 1.020 (1.005-1.025) 11/22/16 15:00 Urine Protein Negative (NEGATIVE) 11/22/16 15:00 Urine Glucose (UA) Negative (NEGATIVE) 11/22/16 15:00 Urine Ketones Negative (NEGATIVE) 11/22/16 15:00 Urine Blood Negative (NEGATIVE) 11/22/16 15:00 Urine Nitrite Negative (NEGATIVE) 11/22/16 15:00 Urine Bilirubin Negative (NEGATIVE) 11/22/16 15:00 Urine Urobilinogen Negative E.U./dl (0.2-1.0) 11/22/16 15:00 Ur Leukocyte Esterase Trace (NEGATIVE) H 11/22/16 15:00 Urine RBC None /hpf (0-3) 11/22/16 15:00 Urine WBC 1 /hpf (3-5) 11/22/16 15:00 Ur Epithelial Cells Rare /hpf (FEW) 11/22/16 15:00 Urine Mucus Rare 11/22/16 15:00 RPR Titer Nonreactive (NONREACTIVE) 11/23/16 06:05 LABS NOTED. Assessment: 11/23/16 15:56 WITHDRAWAL SYMPTOMS. Plan: CONTINUE DETOX. BGM ACBK X 1 TOMORROW AM FOR ELEVATED ADMISSION RANDOM GLUCOSE LEVEL. ADVISED PATIENT TO FOLLOW-UP WITH TUBE DISPATCHER AFTER DISCHARGE FROM DETOX FOR GENERAL MEDICAL ASSESSMENT AND FOR ABNORMAL ADMISSION LAB VALUES.
--- NOTE | 2016-11-23 16:08 | CONSULT ---
[facility] Psychiatric Consult - Data Date of interview: 11/23/16 Admission source: [facility] Identifying data: Another admission to [facility] for this 46 y/o male seeking detox treatment on for alcohol,marijuana and cocaine dependence.Patient is ,a father of three,domiciled,unemployed and supported on SSI benefits. Substance Abuse History: - Smoking Cessation. Smoking history: Current every day smoker. Have you smoked in the past 12 months: Yes. Aproximately how many cigarettes per day: 20. Cigars Per Day: 0. Hx Chewing Tobacco Use: No. Initiated information on smoking cessation: Yes. 'Breaking Loose' booklet given : 11/22/16. - Substance & Tx. History. Hx Alcohol Use: Yes (BEER/LIQUOR( SOMETIMES). Hx Substance Use: Yes (COCAINE). Substance Use Type: Alcohol, Cocaine, Marijuana. Hx Substance Use Treatment: Yes ([facility]-DETOX). - Substances Abused. Alcohol. Route: Oral. Frequency: Daily. Amount used: 10-15 BEERS. Age of first use: 14. Date of Last Use: 11/21/16. Cocaine. Route: Smoking. Frequency: Daily. Amount used: $50. Age of first use: 19. Date of Last Use: 11/21/16. Marijuana/Hashish. Route: Smoking. Frequency: 1-2 times per week. Amount used: 1 JOINT. Age of first use: 14. Date of Last Use: 11/21/16 Medical History: GERD,hepatitis C and a history of withdrawal seizures. Psychiatric History: History of multiple psychiatric hospitalizations at [place] and various facilities in [facility].Diagnosed with MDD and Anxiety Disorder.Mr Garcia indicates that he is on methadone maintenance at the [facility] MMTP program (daily dose of methadone = 120 mg) and that he sees Dr Kwan Page for medication management (celexa 20 mg/day + abilify 10 mg/day + gabapentin 800 mg po bid + clonidine 0.1 mg/0.3 mg at AM/HS respectively).Reportedly took these medications two days ago.Medications are verified via review of Pharmacy Claims (noted filled scripts on 10/23/16 for celexa and abilify/on 10/17/16 for gabapentin and clonidine @ [facility]).NO scripts needed at discharge. Physical/Sexual Abuse/Trauma History: Patient denies. Additional Comment: Urine Drug Screen Results: THC-Marijuana, JAXON-Cocaine, MTD- Methadone.Noted. Psychiatric Findings - Problem List ([place] 1, 2,3) (1) Alcohol dependence with uncomplicated withdrawal Current Visit: Yes Status: Acute (2) Cannabis dependence, uncomplicated Current Visit: Yes Status: Acute (3) Cocaine dependence, uncomplicated Current Visit: Yes Status: Acute (4) Opioid dependence on agonist therapy Current Visit: Yes Status: Acute (5) Nicotine dependence Current Visit: Yes Status: Acute Qualifiers: Nicotine product type: cigarettes Substance use status: in withdrawal Qualified Code(s): F17.213 - Nicotine dependence, cigarettes, with withdrawal (6) Substance induced mood disorder Current Visit: Yes Status: Acute (7) Bipolar disorder Current Visit: Yes Status: Chronic (8) GERD (gastroesophageal reflux disease) Current Visit: Yes Status: Chronic Qualifiers: Esophagitis presence: without esophagitis Qualified Code(s): K21.9 - Gastro-esophageal reflux disease without esophagitis (9) Neuropapillitis Current Visit: No Status: Chronic Comment: arms and legs alcohol related begin neurontin (10) Insomnia Current Visit: Yes Status: Acute - Initial Treatment Plan Initial Treatment Plan: Psychoeducation.Detoxification.Medications : abilify 10 mg po hs + celexa 20 mg po daily + gabapentin 800 mg po bid + clonidine 0.3 mg po hs.Side effects/benefits of each drudg discussed with the patient.Eager to resume medications.Patient is in agreement with plan of care.Observation.
[2016-11-23] MEDS: IBUPROFEN 400 MG TABLET (FP) PO PRN (17:20)
[2016-11-23] MEDS ORDERED: ARIPiprazole 10 MG TABLET PO SCH (22:00)
[2016-11-23] MEDS: THIAMINE HCL 100 MG TABLET (FP) PO SCH (22:06)
[2016-11-23] MEDS: GABAPENTIN 300 MG CAPSULE (FP) PO SCH (22:07)
[2016-11-23] MEDS: cloNIDine HCL 0.1 MG TABLET PO SCH (22:07)
[2016-11-23] MEDS: ARIPiprazole 10 MG TABLET PO SCH (22:07)
[2016-11-23] MEDS: diphenhydrAMINE HCL 50 MG CAPSULE PO PRN (22:08)
[2016-11-24] MEDS ORDERED: METHADONE HCL 10 MG TABLET ONE (02:41)
[2016-11-24] MEDS ORDERED: METHADONE HCL 40 MG DISPERSABLE TABLET ONE (02:42)
[2016-11-24] MEDS: chlordiazePOXIDE HCL 25 MG CAPSULE PO SCH ×2 (05:28→10:12)
[2016-11-24] MEDS: METHADONE 160 MG, METHADONE 20 MG PO SCH (05:28)
[2016-11-24] MEDS: CYCLOBENZAPRINE HCL 10 MG TABLET (FP) PO PRN ×2 (05:29→18:08)
[2016-11-24] MEDS: CITALOPRAM HYDROBROMIDE 20 MG TABLET (FP) PO SCH (10:11)
[2016-11-24] MEDS: PRENATAL VITAMINS W/ FOLIC ACID TABLET (FP) PO SCH (10:11)
[2016-11-24] MEDS: NICOTINE 21 MG/24 HOURS TOPICAL PATCH TD SCH (10:11)
[2016-11-24] MEDS: GABAPENTIN 300 MG CAPSULE (FP) PO SCH ×2 (10:11→22:08)
[2016-11-24] MEDS: chlordiazePOXIDE HCL 25 MG CAPSULE PO PRN ×2 (14:35→19:31)
[2016-11-24] MEDS: chlordiazePOXIDE 5 MG CAPSULE PO SCH ×2 (17:21→22:08)
[2016-11-24] MEDS: IBUPROFEN 400 MG TABLET (FP) PO PRN (17:23)
--- NOTE | 2016-11-24 17:24 | PN ---
[facility] CIWA - CIWA Score Nausea/Vomitin Muscle Tremors: 4-Moderate,w/Arms Extend Anxiety: 4-Mod. Anxious/Guarded Agitation: 3 Paroxysmal Sweats: 3 Orientation: 0-Oriented Tacttile Disturbances: 3-Moderate Itch/Numb/Burn Auditory Disturbances: 0-None Visual Disturbances: 2-Mild Sensitivity Headache: 2-Mild CIWA-Ar Total Score: 24 S Progress Note (SOAP) Subjective: Diarrhea, Interrupted sleep, H/A, Body aches, Tremors, Sweating. Objective: PT. A & O X 3, OBSERVED AMBULATING ON UNIT. 11/24/16 17:22 Vital Signs Temperature 96.0 F L 11/24/16 13:32 Pulse Rate 57 L 11/24/16 13:32 Respiratory Rate 18 11/24/16 13:32 Blood Pressure 101/75 11/24/16 13:32 O2 Sat by Pulse Oximetry (%) Laboratory Last Values WBC 7.7 K/mm3 (4.0-10.0) 11/23/16 06:05 RBC 4.47 M/mm3 (4.00-5.60) 11/23/16 06:05 Hgb 13.6 GM/dL (11.7-16.9) 11/23/16 06:05 Hct 40.6 % (35.4-49) 11/23/16 06:05 MCV 90.9 fl (80-96) 11/23/16 06:05 MCHC 33.5 g/dl (32.0-35.9) 11/23/16 06:05 RDW 13.8 % (11.9-15.9) 11/23/16 06:05 Plt Count 209 K/MM3 (134-434) D 11/23/16 06:05 MPV 9.8 fl (7.5-11.1) 11/23/16 06:05 Sodium 140 mmol/L (136-145) 11/23/16 06:05 Potassium 4.1 mmol/L (3.5-5.1) 11/23/16 06:05 Chloride 102 mmol/L (98-107) 11/23/16 06:05 Carbon Dioxide 29 mmol/L (21-32) 11/23/16 06:05 Anion Gap 9 (8-16) 11/23/16 06:05 BUN 13 mg/dL (7-18) 11/23/16 06:05 Creatinine 1.0 mg/dL (0.7-1.3) 11/23/16 06:05 Creat Clearance w eGFR > 60 (>60) 11/23/16 06:05 POC Glucometer 97 UNITS (()) 11/24/16 06:03 Random Glucose 130 mg/dL (74-106) H 11/23/16 06:05 Calcium 9.5 mg/dL (8.5-10.1) 11/23/16 06:05 Total Bilirubin 0.6 mg/dL (0.2-1.0) D 11/23/16 06:05 AST 9 U/L (15-37) L 11/23/16 06:05 ALT 13 U/L (12-78) 11/23/16 06:05 Alkaline Phosphatase 72 U/L (45-117) 11/23/16 06:05 Total Protein 7.1 g/dl (6.4-8.2) 11/23/16 06:05 Albumin 3.8 g/dl (3.4-5.0) 11/23/16 06:05 Urine Color Ltyellow 11/22/16 15:00 Urine Appearance Clear 11/22/16 15:00 Urine pH 6.0 (5.0-8.0) 11/22/16 15:00 Ur Specific [place] 1.020 (1.005-1.025) 11/22/16 15:00 Urine Protein Negative (NEGATIVE) 11/22/16 15:00 Urine Glucose (UA) Negative (NEGATIVE) 11/22/16 15:00 Urine Ketones Negative (NEGATIVE) 11/22/16 15:00 Urine Blood Negative (NEGATIVE) 11/22/16 15:00 Urine Nitrite Negative (NEGATIVE) 11/22/16 15:00 Urine Bilirubin Negative (NEGATIVE) 11/22/16 15:00 Urine Urobilinogen Negative E.U./dl (0.2-1.0) 11/22/16 15:00 Ur Leukocyte Esterase Trace (NEGATIVE) H 11/22/16 15:00 Urine RBC None /hpf (0-3) 11/22/16 15:00 Urine WBC 1 /hpf (3-5) 11/22/16 15:00 Ur Epithelial Cells Rare /hpf (FEW) 11/22/16 15:00 Urine Mucus Rare 11/22/16 15:00 RPR Titer Nonreactive (NONREACTIVE) 11/23/16 06:05 LABS NOTED. Assessment: 11/24/16 17:23 WITHDRAWAL SYMPTOMS. Plan: CONTINUE DETOX. ADVISED PATIENT TO FOLLOW-UP WITH DIRECTOR OF BILLING AFTER DISCHARGE FROM DETOX FOR GENERAL MEDICAL ASSESSMENT AND FOR ABNORMAL ADMISSION LAB VALUES.
[2016-11-24] MEDS: hydrOXYzine PAMOATE 25 MG CAPSULE (FP) PO PRN (18:08)
[2016-11-24] MEDS: THIAMINE HCL 100 MG TABLET (FP) PO SCH (22:07)
[2016-11-24] MEDS: ARIPiprazole 10 MG TABLET PO SCH (22:08)
[2016-11-24] MEDS: cloNIDine HCL 0.1 MG TABLET PO SCH (22:08)
[2016-11-24] MEDS: diphenhydrAMINE HCL 50 MG CAPSULE PO PRN (22:09)
[2016-11-25] MEDS ORDERED: METHADONE HCL 10 MG TABLET ONE (01:43)
[2016-11-25] MEDS ORDERED: METHADONE HCL 40 MG DISPERSABLE TABLET ONE (01:44)
[2016-11-25] MEDS: chlordiazePOXIDE HCL 25 MG CAPSULE PO PRN (03:32)
[2016-11-25] MEDS: chlordiazePOXIDE 5 MG CAPSULE PO SCH ×2 (05:23→10:06)
[2016-11-25] MEDS: METHADONE 160 MG, METHADONE 20 MG PO SCH (05:24)
[2016-11-25] MEDS: CITALOPRAM HYDROBROMIDE 20 MG TABLET (FP) PO SCH (10:06)
[2016-11-25] MEDS: GABAPENTIN 300 MG CAPSULE (FP) PO SCH ×2 (10:06→22:10)
[2016-11-25] MEDS: PRENATAL VITAMINS W/ FOLIC ACID TABLET (FP) PO SCH (10:06)
[2016-11-25] MEDS: NICOTINE 21 MG/24 HOURS TOPICAL PATCH TD SCH (10:06)
[2016-11-25] MEDS: CYCLOBENZAPRINE HCL 10 MG TABLET (FP) PO PRN ×2 (10:09→18:33)
[2016-11-25] MEDS: hydrOXYzine PAMOATE 25 MG CAPSULE (FP) PO PRN ×3 (11:31→23:08)
--- NOTE | 2016-11-25 12:47 | PN ---
BHS Progress Note (SOAP) Subjective: Sweating,interrupted sleep,restless Objective: 11/25/16 12:46 Vital Signs - 8 hr 11/25/16 11/25/16 06:22 09:21 Temperature 96.3 F L 97.2 F L Pulse Rate 99 H 76 Respiratory 18 18 Rate Blood Pressure 115/81 106/76 Laboratory Last Values WBC 7.7 K/mm3 (4.0-10.0) 11/23/16 06:05 RBC 4.47 M/mm3 (4.00-5.60) 11/23/16 06:05 Hgb 13.6 GM/dL (11.7-16.9) 11/23/16 06:05 Hct 40.6 % (35.4-49) 11/23/16 06:05 MCV 90.9 fl (80-96) 11/23/16 06:05 MCHC 33.5 g/dl (32.0-35.9) 11/23/16 06:05 RDW 13.8 % (11.9-15.9) 11/23/16 06:05 Plt Count 209 K/MM3 (134-434) D 11/23/16 06:05 MPV 9.8 fl (7.5-11.1) 11/23/16 06:05 Sodium 140 mmol/L (136-145) 11/23/16 06:05 Potassium 4.1 mmol/L (3.5-5.1) 11/23/16 06:05 Chloride 102 mmol/L (98-107) 11/23/16 06:05 Carbon Dioxide 29 mmol/L (21-32) 11/23/16 06:05 Anion Gap 9 (8-16) 11/23/16 06:05 BUN 13 mg/dL (7-18) 11/23/16 06:05 Creatinine 1.0 mg/dL (0.7-1.3) 11/23/16 06:05 Creat Clearance w eGFR > 60 (>60) 11/23/16 06:05 POC Glucometer 109 UNITS (()) 11/25/16 05:25 Random Glucose 130 mg/dL (74-106) H 11/23/16 06:05 Calcium 9.5 mg/dL (8.5-10.1) 11/23/16 06:05 Total Bilirubin 0.6 mg/dL (0.2-1.0) D 11/23/16 06:05 AST 9 U/L (15-37) L 11/23/16 06:05 ALT 13 U/L (12-78) 11/23/16 06:05 Alkaline Phosphatase 72 U/L (45-117) 11/23/16 06:05 Total Protein 7.1 g/dl (6.4-8.2) 11/23/16 06:05 Albumin 3.8 g/dl (3.4-5.0) 11/23/16 06:05 Urine Color Ltyellow 11/22/16 15:00 Urine Appearance Clear 11/22/16 15:00 Urine pH 6.0 (5.0-8.0) 11/22/16 15:00 Ur Specific [place] 1.020 (1.005-1.025) 11/22/16 15:00 Urine Protein Negative (NEGATIVE) 11/22/16 15:00 Urine Glucose (UA) Negative (NEGATIVE) 11/22/16 15:00 Urine Ketones Negative (NEGATIVE) 11/22/16 15:00 Urine Blood Negative (NEGATIVE) 11/22/16 15:00 Urine Nitrite Negative (NEGATIVE) 11/22/16 15:00 Urine Bilirubin Negative (NEGATIVE) 11/22/16 15:00 Urine Urobilinogen Negative E.U./dl (0.2-1.0) 11/22/16 15:00 Ur Leukocyte Esterase Trace (NEGATIVE) H 11/22/16 15:00 Urine RBC None /hpf (0-3) 11/22/16 15:00 Urine WBC 1 /hpf (3-5) 11/22/16 15:00 Ur Epithelial Cells Rare /hpf (FEW) 11/22/16 15:00 Urine Mucus Rare 11/22/16 15:00 RPR Titer Nonreactive (NONREACTIVE) 11/23/16 06:05 labs noted Assessment: 11/25/16 12:47 Withdrawal sx Plan: Continue detox
--- NOTE | 2016-11-25 13:06 | EKG ---
Test Reason : Blood Pressure : / mmHG Vent. Rate : 061 BPM Atrial Rate : 061 BPM P-R Int : 180 ms QRS Dur : 094 ms QT Int : 420 ms P-R-T Axes : 059 066 049 degrees QTc Int : 422 ms NORMAL SINUS RHYTHM NORMAL ECG WHEN COMPARED WITH ECG OF 18-SEP-2016 19:01, NO SIGNIFICANT CHANGE WAS FOUND Confirmed by JOVANA ALFORD MD ([id number]) on 11/25/2016 1:05:51 PM Referred By: Confirmed By:JOVANA ALFORD MD
[2016-11-25] MEDS: chlordiazePOXIDE HCL 10 MG CAPSULE PO SCH ×2 (16:57→22:10)
[2016-11-25] MEDS ORDERED: cloNIDine HCL 0.1 MG TABLET PO SCH (22:00)
[2016-11-25] MEDS: diphenhydrAMINE HCL 50 MG CAPSULE PO PRN (22:10)
[2016-11-25] MEDS: ARIPiprazole 10 MG TABLET PO SCH (22:10)
[2016-11-25] MEDS: THIAMINE HCL 100 MG TABLET (FP) PO SCH (22:10)
[2016-11-25] MEDS: IBUPROFEN 400 MG TABLET (FP) PO PRN (23:07)
[2016-11-26] MEDS ORDERED: METHADONE HCL 10 MG TABLET ONE (04:05)
[2016-11-26] MEDS ORDERED: METHADONE HCL 40 MG DISPERSABLE TABLET ONE (04:06)
[2016-11-26] MEDS: chlordiazePOXIDE HCL 10 MG CAPSULE PO SCH ×2 (05:25→10:07)
[2016-11-26] MEDS: METHADONE 160 MG, METHADONE 20 MG PO SCH (05:25)
[2016-11-26] MEDS: hydrOXYzine PAMOATE 25 MG CAPSULE (FP) PO PRN ×2 (05:28→10:07)
[2016-11-26 06:32] VITALS: BP 105/75; PULSE 80; TEMP 97.5
--- NOTE | 2016-11-26 08:57 | DS ---
[facility] Detox Discharge Summary Admission Date: 11/22/16 Discharge Date: 11/26/16 - History Present History: Alcohol Dependence, Cannabis Dependence, Cocaine Dependence, MMTP Additional Comments: DETOX COMPLETED. FOLLOW UP WITH MMTP/PMD FOR AFTERCARE. Pertinent Past History: HTN GERD ALCOHOL RELATED SEIZURE HX DEPRESSION - Physical Exam Results Vital Signs: Vital Signs Temperature 97.5 F L 11/26/16 06:32 Pulse Rate 80 11/26/16 06:32 Respiratory Rate 18 11/26/16 06:32 Blood Pressure 105/75 11/26/16 06:32 O2 Sat by Pulse Oximetry (%) Pertinent Admission Physical Exam Findings: WITHDRAWAL SX - Treatment Hospital Course: Detox Protocol Followed, Detoxed Safely, Responded well, Discharged Condition Good - Medication Discharge Medications: Ambulatory Orders Clonidine HCl [Catapres -] 0.3 mg PO HS 09/18/16 Aripiprazole [Abilify -] 10 mg PO DAILY #30 tablet 09/19/16 Citalopram Hydrobromide [Celexa -] 20 mg PO DAILY 11/22/16 - Diagnosis (1) Alcohol dependence with uncomplicated withdrawal Current Visit: Yes Status: Acute (2) GERD (gastroesophageal reflux disease) Current Visit: Yes Status: Chronic Qualifiers: Esophagitis presence: without esophagitis Qualified Code(s): K21.9 - Gastro-esophageal reflux disease without esophagitis (3) Methadone maintenance therapy patient Current Visit: Yes Status: Chronic (4) Nicotine dependence Current Visit: Yes Status: Acute Qualifiers: Nicotine product type: cigarettes Substance use status: in withdrawal Qualified Code(s): F17.213 - Nicotine dependence, cigarettes, with withdrawal (5) Alcohol related seizure Current Visit: Yes Status: Suspected (6) Cannabis dependence, uncomplicated Current Visit: Yes Status: Acute (7) Cocaine dependence, uncomplicated Current Visit: Yes Status: Acute (8) Hypertension Current Visit: Yes Status: Chronic Qualifiers: Hypertension type: unspecified secondary hypertension Qualified Code (s): I15.9 - Secondary hypertension, unspecified; I15 - Secondary hypertension - AMA Did Patient Leave Against Medical Advice: No
[2016-11-26] MEDS: CITALOPRAM HYDROBROMIDE 20 MG TABLET (FP) PO SCH (10:06)
[2016-11-26] MEDS: GABAPENTIN 300 MG CAPSULE (FP) PO SCH (10:07)
[2016-11-26] MEDS: PRENATAL VITAMINS W/ FOLIC ACID TABLET (FP) PO SCH (10:07)
[2016-11-26] MEDS: NICOTINE 21 MG/24 HOURS TOPICAL PATCH TD SCH (10:09)
== END 2016-11-26 11:29 | disposition home or self-care (01) | DRG 773 ==
LOC: YASAS 10:14 → Y3N 13:29
PROVIDERS: ADMIT Internal Medicine Addiction Medicine; ATTEND Internal Medicine Addiction Medicine
PROC: HZ2ZZZZ Detoxification Services for Substance Abuse Treatment (ICD-10-PCS; principal; 2016-11-22)
DX: F10.230 Alcohol dependence with withdrawal, uncomplicated (principal); F11.20 Opioid dependence, uncomplicated; F14.20 Cocaine dependence, uncomplicated; F17.213 Nicotine dependence, cigarettes, with withdrawal; I10 Essential (primary) hypertension; B18.2 Chronic viral hepatitis C; K21.9 Gastro-esophageal reflux disease without esophagitis; I15.9 Secondary hypertension, unspecified; G58.9 Mononeuropathy, unspecified; Z86.69 Personal history of other diseases of the nervous system and sense organs
CPT/HCPCS: 36415; 80053; 81003; 81015; 85027; 86593; 93005; 93010

== ENCOUNTER 2017-02-21 10:32 | Inpatient (IN) | payer OTHER ==
[2017-02-21 10:53] VITALS: BMI 22.0
--- NOTE | 2017-02-21 12:43 | HP ---
CIWA Score - CIWA Score Nausea/Vomitin-No Nausea/No Vomiting Muscle Tremors: 3 Anxiety: 4-Mod. Anxious/Guarded Agitation: 3 Paroxysmal Sweats: 1-Minimal Palms Moist Orientation: 0-Oriented Tacttile Disturbances: 3-Moderate Itch/Numb/Burn Auditory Disturbances: 0-None Visual Disturbances: 0-None Headache: 0-None Present CIWA-Ar Total Score: 14 Admission ROS BHS - HPI Chief Complaint: DETOX TX FOR ALCOHOL DEPENDENCE Allergies/Adverse Reactions: Allergies Allergy/AdvReac Type Severity Reaction Status Date / Time No Known Allergies Allergy Verified 02/21/17 11:36 History of Present Illness: 46 Y/O MALE WITH A HX OF ALCOHOL,COCAINE AND MARIJUANA DEPENDENCE SEEKING DETOX [place] Exam Limitations: No Limitations - Ebola screening Have you traveled outside of the country in the last 21 days: No Have you had contact with anyone from an Ebola affected area: No Have you been sick,other than usual withdrawal symptoms: No Do you have a fever: No - Review of Systems Constitutional: Chills, Loss of Appetite, Night Sweats, Changes in sleep, Unintentional Wgt. Loss EENT: reports: Tearing, Nose Congestion, Dental Problems (MISSING TOOTH) Respiratory: reports: No Symptoms reported Cardiac: reports: Lightheadedness GI: reports: Constipated, Diarrhea, Nausea, Vomiting : reports: Frequency Musculoskeletal: reports: No Symptoms Reported Integumentary: reports: No Symptoms Reported Neuro: reports: Headache, Numbness, Seizure, Tingling, Tremors, Dizziness Endocrine: reports: No Symptoms Reported Hematology: reports: Easy Bruising Psychiatric: reports: Orientated x3, Anxious, Depressed Other Systems: Reviewed and Negative Patient History - Patient Medical History Hx Anemia: No Hx Asthma: No Hx Chronic Obstructive Pulmonary Disease (COPD): No Hx Cancer: No Hx Cardiac Disorders: No Hx Congestive Heart Failure: No Hx Hypertension: No Hx Hypercholesterolemia: No Hx Pacemaker: No HX Cerebrovascular Accident: No Hx Seizures: Yes (alcohol related-last episode was in 12/2016) Hx Dementia: No Hx Diabetes: No Hx Gastrointestinal Disorders: No Hx Liver Disease: No Hx Genitourinary Disorders: No Hx Sexually Transmitted Disorders: No Hx Renal Disease (ESRD): No Hx Thyroid Disease: No Hx Human Immunodeficiency Virus (HIV): No (NEGATIVE HX) Hx Hepatitis C: Yes (RESOLVED PER PT) Hx Depression: Yes (PT ON MED) Hx Suicide Attempt: No Hx Bipolar Disorder: Yes Hx Schizophrenia: No - Patient Surgical History Past Surgical History: No Hx Neurologic Surgery: No Hx Cataract Extraction: No Hx Cardiac Surgery: No Hx Lung Surgery: No Hx Breast Surgery: No Hx Breast Biopsy: No Hx Abdominal Surgery: No Hx Appendectomy: No Hx Cholecystectomy: No Hx Genitourinary Surgery: No Hx Orthopedic Surgery: No Anesthesia Reaction: No - PPD History Previous Implant?: Yes Documented Results: Negative w/proof Implanted On Prior [facility] Admission?: Yes Date: 05/31/16 Results: 0 mm PPD to be Administered?: No - Reproductive History Patient is a Female of Child Bearing Age (11 -55 yrs old): No (MALE) Patient : (N/A) - Smoking Cessation Smoking history: Current some day smoker Have you smoked in the past 12 months: Yes Aproximately how many cigarettes per day: 5 Cigars Per Day: 0 Hx Chewing Tobacco Use: No Initiated information on smoking cessation: Yes 'Breaking Loose' booklet given: 02/21/17 - Substance & Tx. History Hx Alcohol Use: Yes (BEER) Hx Substance Use: Yes (COCAINE/MARIJUANA) Substance Use Type: Alcohol, Cocaine, Marijuana Hx Substance Use Treatment: Yes (LAST TX AT [facility].) - Substances Abused Cocaine Route: Inhalation Frequency: Daily Amount used: $100 Age of first use: 23 Date of Last Use: 02/20/17 Alcohol-beer Route: Oral Frequency: Daily Amount used: 4-5 6 pks. Age of first use: 14 Date of Last Use: 02/21/17 Marijuana/Hashish Frequency: Daily Amount used: I JOINT Age of first use: 14 Date of Last Use: 02/19/17 Family Disease History - Family Disease History Family Disease History: Other: Grandparent (alcohol,), Father (alcohol, ) Admission Physical Exam BHS - Vital Signs Vital Signs: Vital Signs - 24 hr 02/21/17 10:50 Temperature 97.2 F L Pulse Rate 65 Respiratory 18 Rate Blood Pressure 126/82 - Physical General Appearance: Yes: Moderate Distress, Irritable, Anxious HEENTM: Yes: EOMI, Normocephalic, TO, Pharynx Normal Respiratory: Yes: Chest Non-Tender, Lungs Clear, Normal Breath Sounds, No Respiratory Distress Neck: Yes: No masses,lesions,Nodules, Supple, Trachea in good position Breast: Yes: Breast Exam Deferred Cardiology: Yes: Regular Rhythm, Regular Rate, S1, S2 Abdominal: Yes: Normal Bowel Sounds, Non Tender, Soft Genitourinary: Yes: Other (N/C) Back: Yes: Within Normal Limits Musculoskeletal: Yes: full range of Motion, Gait Steady Extremities: Yes: Normal Range of Motion, Non-Tender Neurological: Yes: intranet developer II-XII NML intact, Fully Oriented, Alert, Motor Strength 5/5 Integumentary: Yes: Dry, Warm Lymphatic: Yes: Within Normal Limits - Diagnostic (1) Alcohol dependence with uncomplicated withdrawal Current Visit: Yes Status: Acute (2) Cannabis dependence, uncomplicated Current Visit: Yes Status: Acute (3) Cocaine dependence, uncomplicated Current Visit: Yes Status: Acute (4) Nicotine dependence Current Visit: Yes Status: Acute Qualifiers: Nicotine product type: cigarettes Substance use status: in withdrawal Qualified Code(s): F17.213 - Nicotine dependence, cigarettes, with withdrawal (5) Methadone maintenance therapy patient Current Visit: Yes Status: Chronic Comment: 130 mg verificaiton pending (6) Alcohol related seizure Current Visit: Yes Status: Suspected Comment: LAST EPISODE 12/2016 (7) History of hepatitis C Current Visit: Yes Status: Chronic Cleared for Admission [facility] - Detox or Rehab [facility] Level of Care: Medically Managed Detox Regimen/Protocol: Librium [facility] Breath Alcohol Content Breath Alcohol Content: 0.112 Urine Drug Screen - Results Drug Screen Negative: No Urine Drug Screen Results: THC-Marijuana, JAXON-Cocaine, MTD-Methadone
[2017-02-21] MEDS ORDERED: IBUPROFEN 400 MG TABLET (FP) PO PRN (13:00)
[2017-02-21] MEDS ORDERED: P-EPHED 60MG/TRIPROLIDI 2.5MG TABLET PO PRN (13:00)
[2017-02-21] MEDS ORDERED: guaiFENesin/D-METHORPHAN HB 10 ML UNIT-DOSE CUPS PO PRN (13:00)
[2017-02-21] MEDS ORDERED: MENTHOL/PHENOL 1 EACH UD MM PRN (13:00)
[2017-02-21] MEDS ORDERED: hydrOXYzine PAMOATE 25 MG CAPSULE (FP) PO PRN (13:00)
[2017-02-21] MEDS ORDERED: LOPERAMIDE HCL 2 MG CAPSULE PO PRN (13:00)
[2017-02-21] MEDS ORDERED: MAGNESIUM CITRATE 300 ML BOTTLE PO PRN (13:00)
[2017-02-21] MEDS ORDERED: MAGNESIUM HYDROX 2400MG/30ML ORAL SUSPENSION 30 ML CUP PO PRN (13:00)
[2017-02-21] MEDS ORDERED: ACETAMINOPHEN 325 MG TABLET (FP) PO PRN (13:00)
[2017-02-21] MEDS ORDERED: NICOTINE POLACRILEX 2 MG GUM BUC PRN (13:00)
[2017-02-21] MEDS ORDERED: METHADONE HCL 10 MG TABLET PO ONE (13:36)
[2017-02-21] MEDS ORDERED: chlordiazePOXIDE HCL 25 MG CAPSULE PO ONE (14:02)
[2017-02-21] MEDS ORDERED: METHADONE 120 MG, METHADONE 30 MG PO ONE (14:10)
[2017-02-21] MEDS ORDERED: METHADONE HCL 40 MG DISPERSABLE TABLET ONE (14:15)
[2017-02-21] MEDS ORDERED: METHADONE HCL 10 MG TABLET ONE (14:16)
[2017-02-21] MEDS: NICOTINE 14 MG/24 HOURS TOPICAL PATCH TD SCH (14:24)
--- NOTE | 2017-02-21 16:06 | CONSULT ---
[facility] Psychiatric Consult - Data Date of interview: 02/21/17 Admission source: [facility] Identifying data: Readmission to [facility] for this 46 y/o male seeking detox treatment on for alcohol,marijuana and cocaine dependence.Patient is ,a father of three,domiciled,unemployed and supported on SSI benefits. Substance Abuse History: Discussed with the patient in this interview.Mr Garcia confirms this report as an accurate description of his patterns of substance abuse : Smoking Cessation. Smoking history: Current some day smoker. Have you smoked in the past 12 months: Yes. Aproximately how many cigarettes per day: 5. Cigars Per Day: 0. Hx Chewing Tobacco Use: No. Initiated information on smoking cessation: Yes. 'Breaking Loose' booklet given : 02/21/17. - Substance & Tx. History. Hx Alcohol Use: Yes (BEER). Hx Substance Use: Yes (COCAINE/MARIJUANA). Substance Use Type: Alcohol, Cocaine, Marijuana. Hx Substance Use Treatment: Yes (LAST [place] AT [place], [place] DETOX.) . - Substances Abused. Cocaine. Route: Inhalation. Frequency: Daily. Amount used: $100. Age of first use: 23. Date of Last Use: 02/20/17. Alcohol-beer. Route: Oral. Frequency: Daily. Amount used: 4-5 6 pks. Age of first use: 14. Date of Last Use: 02/21/17. Marijuana/Hashish. Frequency: Daily. Amount used: I JOINT. Age of first use: 14. Date of Last Use: 02/19/17 Medical History: Remarkable for GERD,hepatitis C and a history of withdrawal seizures. Psychiatric History: History of multiple psychiatric hospitalizations (more than 10 according to patient).He is known to [place] and various facilities in [facility].Diagnosed with MDD and Anxiety Disorder.Patient is on methadone maintenance at the [facility] MMTP program (daily dose = 150 mg) and he sees Dr Kwan Page for medication management (celexa 20 mg/day + abilify 10 mg/day).Medications are verified via review of recent pharmacy claims.Mr Garcia denies history of suicide attempts. Physical/Sexual Abuse/Trauma History: Patient denies. Additional Comment: Urine Drug Screen Results: THC-Marijuana, JAXON-Cocaine, MTD- Methadone.Noted. Mental Status Exam - Mental Status Exam Alert and Oriented to: Time, Place, Person Cognitive Function: Good Patient Appearance: Unkempt, Disheveled Mood: Withdrawn, Anxious Affect: Mood Congruent Patient Behavior: Fatigued, Cooperative Speech Pattern: Clear Voice Loudness: Normal Thought Process: Goal Oriented Thought Disorder: Not Present Hallucinations: Denies Suicidal Ideation: Denies Homicidal Ideation: Denies Insight/Judgement: Poor Sleep: Poorly, Difficulty falling asleep Appetite: Good Muscle strength/Tone: Normal Gait/Station: Normal Psychiatric Findings - Problem List ([place] 1, 2,3) (1) Alcohol dependence with uncomplicated withdrawal Current Visit: Yes Status: Acute (2) Cannabis dependence, uncomplicated Current Visit: Yes Status: Acute (3) Opioid dependence on agonist therapy Current Visit: Yes Status: Acute (4) Cocaine dependence, uncomplicated Current Visit: Yes Status: Acute (5) Nicotine dependence Current Visit: Yes Status: Acute Qualifiers: Nicotine product type: cigarettes Substance use status: in withdrawal Qualified Code(s): F17.213 - Nicotine dependence, cigarettes, with withdrawal (6) Substance induced mood disorder Current Visit: Yes Status: Acute (7) Bipolar II disorder Current Visit: Yes Status: Chronic Comment: abilify (8) GERD (gastroesophageal reflux disease) Current Visit: Yes Status: Chronic Qualifiers: Esophagitis presence: without esophagitis Qualified Code(s): K21.9 - Gastro-esophageal reflux disease without esophagitis (9) Hypertension Current Visit: Yes Status: Chronic Qualifiers: Hypertension type: unspecified secondary hypertension Qualified Code (s): I15.9 - Secondary hypertension, unspecified; I15 - Secondary hypertension (10) Insomnia Current Visit: Yes Status: Acute - Initial Treatment Plan Initial Treatment Plan: Psychoeducation.Detoxification.Medications : celexa 20 mg po daily + abilify 10 mg po hs.Side effects/benefits of eacdrug are discussed with the patient.He agrees to follow his careplan.Observation.
[2017-02-21 16:10] LABS: MCH 30.6 pg (25.7-33.7); MCHC 33.7 g/dl (32.0-35.9); MEAN CELL VOLUME 90.9 fl (80-96); MEAN PLT VOLUME 10.6 fl (7.5-11.1); PLATELET COUNT 230 K/MM3 (134-434); RDW 14.3 % (11.9-15.9); WHITE BLOOD COUNT 7.2 K/mm3 (4.0-10.0)
[2017-02-21 16:32] LABS: ALBUMIN 3.9 g/dl (3.4-5.0); ANION GAP 12 (8-16); CALCIUM 9.3 mg/dL (8.5-10.1); CO2 25 mmol/L (21-32); GLUCOSE,RANDOM 112 mg/dL (74-106)
[2017-02-21 16:37] LABS: ALK PHOS 68 U/L (45-117); BILIRUBIN,TOTAL 0.3 mg/dL (0.2-1.0); CREATININE 0.9 mg/dL (0.7-1.3); SGOT/AST 8 U/L (15-37); SGPT/ALT 18 U/L (12-78); TOT PROT 7.3 g/dl (6.4-8.2)
[2017-02-21] MEDS: chlordiazePOXIDE HCL 25 MG CAPSULE PO SCH ×2 (17:55→22:25)
[2017-02-21 19:09] LABS: URINE APPEARANCE CLEAR; URINE BILIRUBIN NEGATIVE (NEGATIVE); URINE BLOOD NEGATIVE (NEGATIVE); URINE COLOR COLORLESS; URINE GLUCOSE (UA) NEGATIVE (NEGATIVE); URINE KETONE NEGATIVE (NEGATIVE); URINE LEUK ESTERASE NEGATIVE (NEGATIVE); URINE NITRITE NEGATIVE (NEGATIVE); URINE PROTEIN NEGATIVE (NEGATIVE); URINE UROBILINOGEN NEGATIVE mg/dL (0.2-1.0)
[2017-02-21] MEDS: CITALOPRAM HYDROBROMIDE 20 MG TABLET (FP) PO SCH (22:24)
[2017-02-21] MEDS: THIAMINE HCL 100 MG TABLET (FP) PO SCH (22:25)
[2017-02-21] MEDS: ARIPiprazole 10 MG TABLET PO SCH (22:25)
[2017-02-22] MEDS ORDERED: METHADONE HCL 40 MG DISPERSABLE TABLET ONE (05:50)
[2017-02-22] MEDS ORDERED: METHADONE HCL 10 MG TABLET ONE (05:50)
[2017-02-22] MEDS: METHADONE 120 MG, METHADONE 30 MG PO SCH (05:59)
[2017-02-22] MEDS ORDERED: METHADONE HCL 10 MG TABLET PO SCH (06:00)
[2017-02-22] MEDS: chlordiazePOXIDE HCL 25 MG CAPSULE PO SCH ×4 (06:00→22:22)
--- NOTE | 2017-02-22 09:37 | PN ---
S CIWA - CIWA Score Nausea/Vomitin Muscle Tremors: 4-Moderate,w/Arms Extend Anxiety: 3 Agitation: 3 Paroxysmal Sweats: 3 Orientation: 0-Oriented Tacttile Disturbances: 0-None Auditory Disturbances: 0-None Visual Disturbances: 0-None Headache: 0-None Present CIWA-Ar Total Score: 16 S Progress Note (SOAP) Subjective: Anxiety,tremors,sweating,interrupted sleep,restless Objective: 02/22/17 09:38 Vital Signs - 8 hr 02/22/17 02/22/17 03:30 06:00 Temperature 97.7 F Pulse Rate 53 L Respiratory 18 18 Rate Blood Pressure 115/68 Laboratory Last Values WBC 7.2 K/mm3 (4.0-10.0) 02/21/17 13:00 RBC 4.81 M/mm3 (4.00-5.60) 02/21/17 13:00 Hgb 14.7 GM/dL (11.7-16.9) 02/21/17 13:00 Hct 43.7 % (35.4-49) 02/21/17 13:00 MCV 90.9 fl (80-96) 02/21/17 13:00 MCH 30.6 pg (25.7-33.7) 02/21/17 13:00 MCHC 33.7 g/dl (32.0-35.9) 02/21/17 13:00 RDW 14.3 % (11.9-15.9) 02/21/17 13:00 Plt Count 230 K/MM3 (134-434) 02/21/17 13:00 MPV 10.6 fl (7.5-11.1) 02/21/17 13:00 Sodium 143 mmol/L (136-145) 02/21/17 13:00 Potassium 4.1 mmol/L (3.5-5.1) 02/21/17 13:00 Chloride 106 mmol/L (98-107) 02/21/17 13:00 Carbon Dioxide 25 mmol/L (21-32) 02/21/17 13:00 Anion Gap 12 (8-16) 02/21/17 13:00 BUN 12 mg/dL (7-18) 02/21/17 13:00 Creatinine 0.9 mg/dL (0.7-1.3) 02/21/17 13:00 Creat Clearance w eGFR > 60 (>60) 02/21/17 13:00 Random Glucose 112 mg/dL (74-106) H 02/21/17 13:00 Calcium 9.3 mg/dL (8.5-10.1) 02/21/17 13:00 Total Bilirubin 0.3 mg/dL (0.2-1.0) D 02/21/17 13:00 AST 8 U/L (15-37) L 02/21/17 13:00 ALT 18 U/L (12-78) D 02/21/17 13:00 Alkaline Phosphatase 68 U/L (45-117) 02/21/17 13:00 Total Protein 7.3 g/dl (6.4-8.2) 02/21/17 13:00 Albumin 3.9 g/dl (3.4-5.0) 02/21/17 13:00 Urine Color Colorless 02/21/17 18:53 Urine Appearance Clear 02/21/17 18:53 Urine pH 6.0 (5.0-8.0) 02/21/17 18:53 Ur Specific [place] <= 1.005 (1.005-1.025) 02/21/17 18:53 Urine Protein Negative (NEGATIVE) 02/21/17 18:53 Urine Glucose (UA) Negative (NEGATIVE) 02/21/17 18:53 Urine Ketones Negative (NEGATIVE) 02/21/17 18:53 Urine Blood Negative (NEGATIVE) 02/21/17 18:53 Urine Nitrite Negative (NEGATIVE) 02/21/17 18:53 Urine Bilirubin Negative (NEGATIVE) 02/21/17 18:53 Urine Urobilinogen Negative mg/dL (0.2-1.0) 02/21/17 18:53 Ur Leukocyte Esterase Negative (NEGATIVE) 02/21/17 18:53 labs noted Assessment: 02/22/17 09:38 Withdrawal sx. Plan: Continue detox
[2017-02-22] MEDS: CITALOPRAM HYDROBROMIDE 20 MG TABLET (FP) PO SCH (10:22)
[2017-02-22] MEDS: PRENATAL VITAMINS W/ FOLIC ACID TABLET (FP) PO SCH (10:22)
[2017-02-22] MEDS: NICOTINE 14 MG/24 HOURS TOPICAL PATCH TD SCH (10:24)
[2017-02-22] MEDS: chlordiazePOXIDE HCL 25 MG CAPSULE PO PRN ×2 (14:40→20:52)
[2017-02-22] MEDS: THIAMINE HCL 100 MG TABLET (FP) PO SCH (22:22)
[2017-02-22] MEDS: ARIPiprazole 10 MG TABLET PO SCH (22:22)
[2017-02-23] MEDS: chlordiazePOXIDE HCL 25 MG CAPSULE PO PRN ×3 (01:44→19:20)
[2017-02-23] MEDS ORDERED: METHADONE HCL 40 MG DISPERSABLE TABLET ONE (03:57)
[2017-02-23] MEDS ORDERED: METHADONE HCL 10 MG TABLET ONE (03:58)
[2017-02-23] MEDS: chlordiazePOXIDE HCL 25 MG CAPSULE PO SCH ×2 (05:44→10:39)
[2017-02-23] MEDS: METHADONE 120 MG, METHADONE 30 MG PO SCH (05:45)
[2017-02-23] MEDS ORDERED: hydrOXYzine PAMOATE 25 MG CAPSULE (FP) PO PRN (10:01)
[2017-02-23] MEDS: CITALOPRAM HYDROBROMIDE 20 MG TABLET (FP) PO SCH (10:39)
[2017-02-23] MEDS: PRENATAL VITAMINS W/ FOLIC ACID TABLET (FP) PO SCH (10:39)
[2017-02-23] MEDS: NICOTINE 14 MG/24 HOURS TOPICAL PATCH TD SCH (10:39)
--- NOTE | 2017-02-23 14:04 | EKG ---
Test Reason : Blood Pressure : / mmHG Vent. Rate : 065 BPM Atrial Rate : 065 BPM P-R Int : 176 ms QRS Dur : 096 ms QT Int : 422 ms P-R-T Axes : 057 066 053 degrees QTc Int : 438 ms NORMAL SINUS RHYTHM INCOMPLETE RIGHT BUNDLE BRANCH BLOCK BORDERLINE ECG WHEN COMPARED WITH ECG OF 22-NOV-2016 14:08, INCOMPLETE RIGHT BUNDLE BRANCH BLOCK IS NOW PRESENT CLINICAL CORRELATION IS RECOMMENDED Confirmed by NATHAN HUNG, CAIO ([id number]) on 02/23/2017 2:04:06 PM Referred By: Confirmed By:CAIO EVANS MD
--- NOTE | 2017-02-23 15:24 | PN ---
[facility] CIWA - CIWA Score Nausea/Vomitin-No Nausea/No Vomiting Muscle Tremors: 3 Anxiety: 4-Mod. Anxious/Guarded Agitation: 3 Paroxysmal Sweats: 3 Orientation: 0-Oriented Tacttile Disturbances: 0-None Auditory Disturbances: 0-None Visual Disturbances: 0-None Headache: 0-None Present CIWA-Ar Total Score: 13 S Progress Note (SOAP) Subjective: Anxiety,tremors,sweating,interrupted sleep,restless. Objective: 02/23/17 15:06 Vital Signs - 8 hr 02/23/17 02/23/17 10:00 14:32 Temperature 97.3 F L 97.5 F L Pulse Rate 72 71 Respiratory 18 18 Rate Blood Pressure 120/75 110/77 Laboratory Last Values WBC 7.2 K/mm3 (4.0-10.0) 02/21/17 13:00 RBC 4.81 M/mm3 (4.00-5.60) 02/21/17 13:00 Hgb 14.7 GM/dL (11.7-16.9) 02/21/17 13:00 Hct 43.7 % (35.4-49) 02/21/17 13:00 MCV 90.9 fl (80-96) 02/21/17 13:00 MCH 30.6 pg (25.7-33.7) 02/21/17 13:00 MCHC 33.7 g/dl (32.0-35.9) 02/21/17 13:00 RDW 14.3 % (11.9-15.9) 02/21/17 13:00 Plt Count 230 K/MM3 (134-434) 02/21/17 13:00 MPV 10.6 fl (7.5-11.1) 02/21/17 13:00 Sodium 143 mmol/L (136-145) 02/21/17 13:00 Potassium 4.1 mmol/L (3.5-5.1) 02/21/17 13:00 Chloride 106 mmol/L (98-107) 02/21/17 13:00 Carbon Dioxide 25 mmol/L (21-32) 02/21/17 13:00 Anion Gap 12 (8-16) 02/21/17 13:00 BUN 12 mg/dL (7-18) 02/21/17 13:00 Creatinine 0.9 mg/dL (0.7-1.3) 02/21/17 13:00 Creat Clearance w eGFR > 60 (>60) 02/21/17 13:00 Random Glucose 112 mg/dL (74-106) H 02/21/17 13:00 Calcium 9.3 mg/dL (8.5-10.1) 02/21/17 13:00 Total Bilirubin 0.3 mg/dL (0.2-1.0) D 02/21/17 13:00 AST 8 U/L (15-37) L 02/21/17 13:00 ALT 18 U/L (12-78) D 02/21/17 13:00 Alkaline Phosphatase 68 U/L (45-117) 02/21/17 13:00 Total Protein 7.3 g/dl (6.4-8.2) 02/21/17 13:00 Albumin 3.9 g/dl (3.4-5.0) 02/21/17 13:00 Urine Color Colorless 02/21/17 18:53 Urine Appearance Clear 02/21/17 18:53 Urine pH 6.0 (5.0-8.0) 02/21/17 18:53 Ur Specific [place] <= 1.005 (1.005-1.025) 02/21/17 18:53 Urine Protein Negative (NEGATIVE) 02/21/17 18:53 Urine Glucose (UA) Negative (NEGATIVE) 02/21/17 18:53 Urine Ketones Negative (NEGATIVE) 02/21/17 18:53 Urine Blood Negative (NEGATIVE) 02/21/17 18:53 Urine Nitrite Negative (NEGATIVE) 02/21/17 18:53 Urine Bilirubin Negative (NEGATIVE) 02/21/17 18:53 Urine Urobilinogen Negative mg/dL (0.2-1.0) 02/21/17 18:53 Ur Leukocyte Esterase Negative (NEGATIVE) 02/21/17 18:53 RPR Titer Nonreactive (NONREACTIVE) 02/21/17 13:00 labs noted Assessment: 02/23/17 15:24 Withdrawal sx. Plan: Continue detox
[2017-02-23] MEDS: chlordiazePOXIDE 5 MG CAPSULE PO SCH ×2 (17:11→22:22)
[2017-02-23] MEDS: MAG HYDROX/AL HYDROX/SIMETH 30 ML UNIT-DOSE CUP PO PRN (19:23)
[2017-02-23] MEDS: THIAMINE HCL 100 MG TABLET (FP) PO SCH (22:22)
[2017-02-23] MEDS: ARIPiprazole 10 MG TABLET PO SCH (22:22)
[2017-02-24] MEDS: diphenhydrAMINE HCL 50 MG CAPSULE PO PRN ×2 (02:07→22:37)
[2017-02-24] MEDS: chlordiazePOXIDE HCL 25 MG CAPSULE PO PRN (02:08)
[2017-02-24] MEDS ORDERED: METHADONE HCL 40 MG DISPERSABLE TABLET ONE (04:19)
[2017-02-24] MEDS ORDERED: METHADONE HCL 10 MG TABLET ONE (04:20)
[2017-02-24] MEDS: chlordiazePOXIDE 5 MG CAPSULE PO SCH ×2 (05:41→10:27)
[2017-02-24] MEDS: METHADONE 120 MG, METHADONE 30 MG PO SCH (05:42)
[2017-02-24] MEDS: CITALOPRAM HYDROBROMIDE 20 MG TABLET (FP) PO SCH (10:27)
[2017-02-24] MEDS: NICOTINE 14 MG/24 HOURS TOPICAL PATCH TD SCH (10:27)
[2017-02-24] MEDS: PRENATAL VITAMINS W/ FOLIC ACID TABLET (FP) PO SCH (10:27)
[2017-02-24] MEDS: MAG HYDROX/AL HYDROX/SIMETH 30 ML UNIT-DOSE CUP PO PRN (10:29)
[2017-02-24] MEDS: cloNIDine HCL 0.1 MG TABLET PO SCH (10:59)
--- NOTE | 2017-02-24 12:26 | PN ---
S Progress Note (SOAP) Subjective: ALERT,IRRITABLE,ANXIOUS,INTERRUPTED SLEEP,PAIN IN THE BODY AND BACK Objective: 02/24/17 12:24 Vital Signs Temperature 96.6 F L 02/24/17 10:08 Pulse Rate 68 02/24/17 10:08 Respiratory Rate 20 02/24/17 10:08 Blood Pressure 128/87 02/24/17 10:08 O2 Sat by Pulse Oximetry (%) Assessment: 02/24/17 12:24 WITHDRAWAL SYMPTOM Plan: CONTINUE DETOX,VERIFY WITH PHARMACIST PATIENT HAS BEEN ON CLONIDINE 0.3 MG PO DAILY
[2017-02-24] MEDS: chlordiazePOXIDE HCL 10 MG CAPSULE PO SCH ×2 (17:27→22:36)
[2017-02-24] MEDS: ARIPiprazole 10 MG TABLET PO SCH (22:36)
[2017-02-24] MEDS: THIAMINE HCL 100 MG TABLET (FP) PO SCH (22:36)
[2017-02-25] MEDS ORDERED: METHADONE HCL 40 MG DISPERSABLE TABLET ONE (04:43)
[2017-02-25] MEDS ORDERED: METHADONE HCL 10 MG TABLET ONE (04:44)
[2017-02-25] MEDS: chlordiazePOXIDE HCL 10 MG CAPSULE PO SCH ×2 (05:20→10:36)
[2017-02-25] MEDS: METHADONE 120 MG, METHADONE 30 MG PO SCH (05:20)
--- NOTE | 2017-02-25 08:05 | PN ---
S Progress Note (SOAP) Subjective: ALERT,NO COMPLAINT Objective: 02/25/17 08:04 Vital Signs Temperature 98.2 F 02/25/17 06:22 Pulse Rate 90 02/25/17 06:22 Respiratory Rate 20 02/25/17 06:22 Blood Pressure 107/68 02/25/17 06:22 O2 Sat by Pulse Oximetry (%) Assessment: 02/25/17 08:04 DETOX COMPLETED,NO WITHDRAWAL SYMPTOM Plan: DISCHARGE TODAY,FOLLOW UP WITH AFTER CARE PROGRAM ARRANGEMENT
--- NOTE | 2017-02-25 08:08 | DS ---
[facility] Detox Discharge Summary Admission Date: 02/21/17 Discharge Date: 02/25/17 - History Present History: Alcohol Dependence, Cannabis Dependence, Cocaine Dependence, MMTP Pertinent Past History: NICOTINE DEPENDENCE - Physical Exam Results Vital Signs: Vital Signs Temperature 98.2 F 02/25/17 06:22 Pulse Rate 90 02/25/17 06:22 Respiratory Rate 20 02/25/17 06:22 Blood Pressure 107/68 02/25/17 06:22 O2 Sat by Pulse Oximetry (%) Pertinent Admission Physical Exam Findings: WITHDRAWAL SYMPTOM - Treatment Hospital Course: Detox Protocol Followed, Detoxed Safely, Responded well, Discharged Condition Good, Rehab Referral Accepted Patient has Accepted a Rehab Referral to: [facility] - Medication Discharge Medications: Ambulatory Orders Clonidine HCl [Catapres -] 0.3 mg PO HS 09/18/16 Aripiprazole [Abilify -] 10 mg PO DAILY #30 tablet 09/19/16 Citalopram Hydrobromide [Celexa -] 20 mg PO DAILY 11/22/16 Aripiprazole [Abilify -] 10 mg PO DAILY #30 tablet 02/21/17 Citalopram Hydrobromide [Celexa -] 20 mg PO DAILY #30 tablet 02/21/17 - Diagnosis (1) Alcohol dependence with uncomplicated withdrawal Current Visit: Yes Status: Acute (2) Cannabis dependence, uncomplicated Current Visit: Yes Status: Acute (3) Cocaine dependence, uncomplicated Current Visit: Yes Status: Acute (4) Opioid dependence on agonist therapy Current Visit: Yes Status: Acute - AMA Did Patient Leave Against Medical Advice: No
[2017-02-25] MEDS ORDERED: chlordiazePOXIDE 5 MG CAPSULE ONE (09:00)
[2017-02-25 10:07] VITALS: BP 100/66; PULSE 72; TEMP 97.9
[2017-02-25] MEDS: CITALOPRAM HYDROBROMIDE 20 MG TABLET (FP) PO SCH (10:33)
[2017-02-25] MEDS: NICOTINE 14 MG/24 HOURS TOPICAL PATCH TD SCH (10:33)
[2017-02-25] MEDS: cloNIDine HCL 0.1 MG TABLET PO SCH (10:33)
[2017-02-25] MEDS: PRENATAL VITAMINS W/ FOLIC ACID TABLET (FP) PO SCH (10:33)
== END 2017-02-25 12:42 | disposition other institution (70) | DRG 773 ==
LOC: YASAS 10:32 → Y6N 13:25
PROVIDERS: ADMIT Internal Medicine; ATTEND Internal Medicine
PROC: HZ2ZZZZ Detoxification Services for Substance Abuse Treatment (ICD-10-PCS; principal; 2017-02-21)
DX: F10.230 Alcohol dependence with withdrawal, uncomplicated (principal); F11.20 Opioid dependence, uncomplicated; F14.20 Cocaine dependence, uncomplicated; F12.20 Cannabis dependence, uncomplicated; F17.213 Nicotine dependence, cigarettes, with withdrawal; F19.24 Other psychoactive substance dependence with psychoactive substance-induced mood disorder; F31.81 Bipolar II disorder; K21.9 Gastro-esophageal reflux disease without esophagitis; G47.00 Insomnia, unspecified; B18.2 Chronic viral hepatitis C; Z86.69 Personal history of other diseases of the nervous system and sense organs
CPT/HCPCS: 36415; 80053; 81003; 85027; 86593; 93005; 93010

== ENCOUNTER 2017-02-25 12:59 | Inpatient (IN) | payer OTHER ==
[2017-02-25] MEDS ORDERED: IBUPROFEN 400 MG TABLET (FP) PO PRN (13:42)
[2017-02-25] MEDS ORDERED: MENTHOL/PHENOL 1 EACH UD MM PRN (13:42)
[2017-02-25] MEDS ORDERED: MAGNESIUM HYDROX 2400MG/30ML ORAL SUSPENSION 30 ML CUP PO PRN (13:42)
[2017-02-25] MEDS ORDERED: MAGNESIUM CITRATE 300 ML BOTTLE PO PRN (13:42)
[2017-02-25] MEDS ORDERED: MAG HYDROX/AL HYDROX/SIMETH 30 ML UNIT-DOSE CUP PO PRN (13:42)
[2017-02-25] MEDS ORDERED: P-EPHED 60MG/TRIPROLIDI 2.5MG TABLET PO PRN (13:42)
[2017-02-25] MEDS ORDERED: diphenhydrAMINE HCL 50 MG CAPSULE PO PRN (13:42)
[2017-02-25] MEDS ORDERED: guaiFENesin/D-METHORPHAN HB 10 ML UNIT-DOSE CUPS PO PRN (13:42)
[2017-02-25] MEDS ORDERED: LOPERAMIDE HCL 2 MG CAPSULE PO PRN (13:42)
--- NOTE | 2017-02-25 16:08 | HP ---
[facility] Rehab Assess/Revision - Admission History Admitted to Rehab from: [facility] Date of Admission to Rehab: 02/25/17 - Vital signs Vital Signs: Vital Signs Period Temp Pulse Resp BP Sys/Raines Pulse Ox Last 24 Hr 99.1 F - Findings Detox History & Physical reviewed: Yes Concur with findings: Yes Comments/Additional Findings: transferred from detox to rehab admission as per protocol
[2017-02-25] MEDS: THIAMINE HCL 100 MG TABLET (FP) PO SCH (21:41)
[2017-02-26] MEDS ORDERED: METHADONE HCL 40 MG DISPERSABLE TABLET ONE (04:02)
[2017-02-26] MEDS ORDERED: METHADONE HCL 10 MG TABLET ONE (04:02)
[2017-02-26] MEDS: METHADONE 120 MG, METHADONE 30 MG PO SCH (05:54)
[2017-02-26] MEDS ORDERED: METHADONE HCL 40 MG DISPERSABLE TABLET PO SCH (06:00)
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
[2017-02-26] MEDS: PRENATAL VITAMINS W/ FOLIC ACID TABLET (FP) PO SCH (09:44)
[2017-02-26] MEDS: cloNIDine HCL 0.1 MG TABLET PO SCH (09:44)
[2017-02-26] MEDS: CITALOPRAM HYDROBROMIDE 10 MG TABLET (FP) PO SCH (12:39)
[2017-02-26] MEDS: ARIPiprazole 10 MG TABLET PO SCH (12:40)
[2017-02-26] MEDS: ACETAMINOPHEN 325 MG TABLET (FP) PO PRN (21:14)
[2017-02-26] MEDS: THIAMINE HCL 100 MG TABLET (FP) PO SCH (21:15)
[2017-02-27] MEDS ORDERED: METHADONE HCL 10 MG TABLET ONE (05:27)
[2017-02-27] MEDS ORDERED: METHADONE HCL 40 MG DISPERSABLE TABLET ONE (05:28)
[2017-02-27] MEDS: ACETAMINOPHEN 325 MG TABLET (FP) PO PRN (06:02)
[2017-02-27] MEDS: METHADONE 120 MG, METHADONE 30 MG PO SCH (06:03)
[2017-02-27] MEDS: cloNIDine HCL 0.1 MG TABLET PO SCH (09:57)
[2017-02-27] MEDS: PRENATAL VITAMINS W/ FOLIC ACID TABLET (FP) PO SCH (09:57)
[2017-02-27] MEDS: ARIPiprazole 10 MG TABLET PO SCH (09:57)
[2017-02-27] MEDS: CITALOPRAM HYDROBROMIDE 10 MG TABLET (FP) PO SCH (09:58)
[2017-02-27] MEDS: THIAMINE HCL 100 MG TABLET (FP) PO SCH (21:19)
[2017-02-27] MEDS: SUVOREXANT 10 MG TABLET PO PRN (21:21)
[2017-02-28] MEDS ORDERED: METHADONE HCL 10 MG TABLET ONE (02:16)
[2017-02-28] MEDS ORDERED: METHADONE HCL 40 MG DISPERSABLE TABLET ONE (02:17)
[2017-02-28] MEDS: METHADONE 120 MG, METHADONE 30 MG PO SCH (06:18)
[2017-02-28] MEDS: ARIPiprazole 10 MG TABLET PO SCH (10:02)
[2017-02-28] MEDS: cloNIDine HCL 0.1 MG TABLET PO SCH (10:02)
[2017-02-28] MEDS: CITALOPRAM HYDROBROMIDE 10 MG TABLET (FP) PO SCH (10:02)
[2017-02-28] MEDS: PRENATAL VITAMINS W/ FOLIC ACID TABLET (FP) PO SCH (10:02)
[2017-02-28] MEDS: NICOTINE 21 MG/24 HOURS TOPICAL PATCH TD SCH (12:49)
[2017-02-28] MEDS: NICOTINE POLACRILEX 2 MG GUM BUC PRN (14:22)
[2017-02-28] MEDS: THIAMINE HCL 100 MG TABLET (FP) PO SCH (21:29)
[2017-02-28] MEDS: SUVOREXANT 10 MG TABLET PO PRN (21:29)
[2017-02-28] MEDS: hydrOXYzine PAMOATE 25 MG CAPSULE (FP) PO PRN (21:31)
[2017-03-01] MEDS ORDERED: METHADONE HCL 40 MG DISPERSABLE TABLET ONE (04:24)
[2017-03-01] MEDS ORDERED: METHADONE HCL 10 MG TABLET ONE (04:24)
[2017-03-01] MEDS: METHADONE 120 MG, METHADONE 30 MG PO SCH (06:02)
[2017-03-01] MEDS: PRENATAL VITAMINS W/ FOLIC ACID TABLET (FP) PO SCH (10:40)
[2017-03-01] MEDS: CITALOPRAM HYDROBROMIDE 10 MG TABLET (FP) PO SCH (10:40)
[2017-03-01] MEDS: ARIPiprazole 10 MG TABLET PO SCH (10:40)
[2017-03-01] MEDS: cloNIDine HCL 0.1 MG TABLET PO SCH (10:41)
[2017-03-01] MEDS: NICOTINE 21 MG/24 HOURS TOPICAL PATCH TD SCH (10:41)
[2017-03-01] MEDS: NICOTINE POLACRILEX 2 MG GUM BUC PRN (10:42)
--- NOTE | 2017-03-01 12:56 | PN ---
[facility] Progress Note Note: pain in left lower tooth and gum,cavity,pen vee k 500 mgs po q6hrs for 7 days,2% lidocaine viscous prn for toothache
[2017-03-01] MEDS ORDERED: PT OWN MED DRAWER 7, Y5N ONE (16:25)
[2017-03-01] MEDS: PENICILLIN V POTASSIUM 500 MG TABLET PO SCH ×2 (17:10→23:58)
[2017-03-01] MEDS: SUVOREXANT 10 MG TABLET PO PRN (21:15)
[2017-03-01] MEDS: hydrOXYzine PAMOATE 25 MG CAPSULE (FP) PO PRN (21:15)
[2017-03-01] MEDS: THIAMINE HCL 100 MG TABLET (FP) PO SCH (21:16)
[2017-03-02] MEDS ORDERED: METHADONE HCL 40 MG DISPERSABLE TABLET ONE (03:54)
[2017-03-02] MEDS ORDERED: METHADONE HCL 10 MG TABLET ONE (03:54)
[2017-03-02] MEDS: ACETAMINOPHEN 325 MG TABLET (FP) PO PRN ×2 (04:06→11:51)
[2017-03-02] MEDS: PENICILLIN V POTASSIUM 500 MG TABLET PO SCH ×4 (05:59→23:53)
[2017-03-02] MEDS: METHADONE 120 MG, METHADONE 30 MG PO SCH (05:59)
[2017-03-02] MEDS: cloNIDine HCL 0.1 MG TABLET PO SCH (09:58)
[2017-03-02] MEDS: NICOTINE 21 MG/24 HOURS TOPICAL PATCH TD SCH (09:58)
[2017-03-02] MEDS: CITALOPRAM HYDROBROMIDE 10 MG TABLET (FP) PO SCH (09:58)
[2017-03-02] MEDS: ARIPiprazole 10 MG TABLET PO SCH (09:58)
[2017-03-02] MEDS: PRENATAL VITAMINS W/ FOLIC ACID TABLET (FP) PO SCH (09:58)
[2017-03-02] MEDS: NICOTINE POLACRILEX 2 MG GUM BUC PRN (10:00)
[2017-03-02] MEDS ORDERED: PT OWN MED DRAWER 7, Y5N ONE ×2 (11:50→16:31)
[2017-03-02] MEDS: LIDOCAINE VISCOUS 2% ORAL/TOP 20 ML UNIT-DOSE CUP MM PRN (11:51)
[2017-03-02] MEDS: THIAMINE HCL 100 MG TABLET (FP) PO SCH (21:01)
[2017-03-02] MEDS: hydrOXYzine PAMOATE 25 MG CAPSULE (FP) PO PRN (21:01)
[2017-03-03] MEDS: hydrOXYzine PAMOATE 25 MG CAPSULE (FP) PO PRN (02:32)
[2017-03-03] MEDS ORDERED: METHADONE HCL 40 MG DISPERSABLE TABLET ONE (05:41)
[2017-03-03] MEDS ORDERED: METHADONE HCL 10 MG TABLET ONE (05:41)
[2017-03-03] MEDS: METHADONE 120 MG, METHADONE 30 MG PO SCH (06:00)
[2017-03-03] MEDS: PENICILLIN V POTASSIUM 500 MG TABLET PO SCH ×3 (06:00→17:11)
[2017-03-03] MEDS: PRENATAL VITAMINS W/ FOLIC ACID TABLET (FP) PO SCH (10:26)
[2017-03-03] MEDS: NICOTINE 21 MG/24 HOURS TOPICAL PATCH TD SCH (10:27)
[2017-03-03] MEDS: CITALOPRAM HYDROBROMIDE 10 MG TABLET (FP) PO SCH (10:27)
[2017-03-03] MEDS: NICOTINE POLACRILEX 2 MG GUM BUC PRN (10:27)
[2017-03-03] MEDS: cloNIDine HCL 0.1 MG TABLET PO SCH (10:27)
[2017-03-03] MEDS: ARIPiprazole 10 MG TABLET PO SCH (10:28)
--- NOTE | 2017-03-03 13:43 | PN ---
Psychiatric Progress Note Vital Signs: Vital Signs Period Temp Pulse Resp BP Sys/Raines Pulse Ox Last 24 Hr 97.7 F 61-110 18-18 115-126/78-81 Date of Session: 03/03/17 Chief Complaint:: My sleep is a big problem and my anxiety is unbearable. HPI: Patient addressed Alcohol,Cocaine dependence comorbid with MDD. ROS: Significant for HTN,GERD. Current Medications: Active Medications Generic Name Dose Route Start Last Admin Trade Name Freq PRN Reason Stop Dose Admin Acetaminophen 650 mg 02/25/17 13:42 03/02/17 11:51 Tylenol - PO 650 mg Q4H PRN Administration FEVER OR PAIN Al Hydroxide/Mg Hydroxide 30 ml 02/25/17 13:42 03/02/17 14:50 Mylanta Oral Suspension - PO 30 ml Q6H PRN Administration DYSPEPSIA Amitriptyline HCl 25 mg 03/03/17 13:45 Elavil - PO TID RAIZA Aripiprazole 10 mg 02/26/17 10:30 03/03/17 10:28 Abilify PO 10 mg DAILY RAIZA Administration Citalopram Hydrobromide 30 mg 02/26/17 10:30 03/03/17 10:27 Celexa - PO 30 mg DAILY RAIZA Administration Clonidine 0.3 mg 02/26/17 10:00 03/03/17 10:27 Catapres - PO 0.3 mg DAILY RAIZA Administration Diphenhydramine HCl 50 mg 02/25/17 13:42 02/27/17 21:19 Benadryl - PO 50 mg HSMR1 PRN Administration FOR ITCHING Eucalyptus/Menthol/Phenol/Sorbitol 1 each 02/25/17 13:42 Cepastat Lozenge - MM Q4H PRN SORE THROAT Guaifenesin 10 ml 02/25/17 13:42 Robitussin Dm - PO Q6H PRN COUGH Hydroxyzine Pamoate 25 mg 02/25/17 13:42 03/03/17 02:32 Vistaril - PO 25 mg Q4H PRN Administration AGITATION Ibuprofen 400 mg 02/25/17 13:42 Motrin - PO Q6H PRN PAIN Lidocaine HCl 20 ml 03/01/17 12:53 03/02/17 11:51 Xylocaine 2% Viscous Oral - MM 20 ml Q6HPO PRN Administration ORAL PAIN/MOUTH SORES Loperamide HCl 4 mg 02/25/17 13:42 Imodium - PO Q6H PRN DIARRHEA Magnesium Hydroxide 30 ml 02/25/17 13:42 02/28/17 10:05 Milk Of Magnesia - PO 30 ml DAILY PRN Administration CONSTIPATION Methadone HCl 120 mg/ 150 mg 03/04/17 06:00 Methadone HCl 30 mg PO DAILY@0600 RAIZA Nicotine 21 mg 02/28/17 12:30 03/03/17 10:27 Nicoderm Patch - TD Not Given DAILY RAIZA Nicotine Polacrilex 2 mg 02/28/17 12:27 03/03/17 10:27 Nicorette Gum - BUC 2 mg Q2H PRN Administration NICOTINE REPLACEMENT RX Penicillin V Potassium 500 mg 03/01/17 18:00 03/03/17 12:27 Pen Vee K - PO 500 mg Q6HPO RAIZA Administration Multivit/Folic Acid/Iron 1 tab 02/26/17 10:00 03/03/17 10:26 Vitamins (Sjr) - PO 1 tab DAILY RAIZA Administration Pseudoephedrine/Triprolidine 1 combo 02/25/17 13:42 Actifed - PO TID PRN NASAL CONGESTION Thiamine HCl 100 mg 02/25/17 22:00 03/02/17 21:01 Vitamin B1 - PO 100 mg HS RAIZA Administration Current Side Effect: No Lab tests ordered: No Lab tests reviewed: Yes Provider note:: Chart was revueved ,attending admission notes appreciated.Patient was seen in my office to address ongoing anxiety, restlessness,mood instability.Properties of Elavil has been discussed with the patient including side effects,benefits and dose adjustment.Elavil 25 mg po tid will be started today.Continue Belsomra 10 mg po hs for insomnia. Supportive therapy provided.. Total face to face time:: 25 Mental Status Exam - Mental Status Exam Alert and Oriented to: Time, Place, Person Cognitive Function: Grossly Intact Patient Appearance: Unkempt Mood: Nervous, Anxious, Expansive, Irritable Affect: Labile Patient Behavior: Cooperative Speech Pattern: Clear Voice Loudness: Normal Thought Process: Goal Oriented Thought Disorder: Not Present Hallucinations: Denies Suicidal Ideation: Denies Homicidal Ideation: Denies Insight/Judgement: Fair Sleep: Difficulty falling asleep Appetite: Good Muscle strength/Tone: Normal Gait/Station: Normal Psychiatric Treatment Plan - Problem List (1) Alcohol dependence Current Visit: Yes (2) Cocaine dependence Current Visit: Yes (3) MDD (major depressive disorder), recurrent episode, mild Current Visit: Yes
[2017-03-03] MEDS ORDERED: IBUPROFEN 600 MG TABLET (FP) PO PRN (13:44)
[2017-03-03] MEDS ORDERED: SUVOREXANT 5 MG TABLET PO PRN (13:47)
[2017-03-03] MEDS: LIDOCAINE VISCOUS 2% ORAL/TOP 20 ML UNIT-DOSE CUP MM PRN (14:47)
[2017-03-03] MEDS: AMITRIPTYLINE HCL 25 MG TABLET (FP) PO SCH ×2 (14:50→21:08)
[2017-03-03] MEDS: THIAMINE HCL 100 MG TABLET (FP) PO SCH (21:08)
[2017-03-04] MEDS: hydrOXYzine PAMOATE 25 MG CAPSULE (FP) PO PRN ×2 (00:14→21:15)
[2017-03-04] MEDS: PENICILLIN V POTASSIUM 500 MG TABLET PO SCH ×4 (00:16→18:58)
[2017-03-04] MEDS ORDERED: METHADONE HCL 40 MG DISPERSABLE TABLET ONE (04:20)
[2017-03-04] MEDS ORDERED: METHADONE HCL 10 MG TABLET ONE (04:20)
[2017-03-04] MEDS: METHADONE 120 MG, METHADONE 30 MG PO SCH (05:53)
[2017-03-04] MEDS: AMITRIPTYLINE HCL 25 MG TABLET (FP) PO SCH ×3 (05:53→21:14)
[2017-03-04] MEDS ORDERED: METHADONE HCL 10 MG TABLET PO SCH (06:00)
[2017-03-04] MEDS: NICOTINE POLACRILEX 2 MG GUM BUC PRN (09:01)
[2017-03-04] MEDS: PRENATAL VITAMINS W/ FOLIC ACID TABLET (FP) PO SCH (10:00)
[2017-03-04] MEDS: CITALOPRAM HYDROBROMIDE 10 MG TABLET (FP) PO SCH (10:00)
[2017-03-04] MEDS: cloNIDine HCL 0.1 MG TABLET PO SCH (10:01)
[2017-03-04] MEDS: ARIPiprazole 10 MG TABLET PO SCH (10:02)
[2017-03-04] MEDS: NICOTINE 21 MG/24 HOURS TOPICAL PATCH TD SCH (10:03)
[2017-03-04] MEDS: HYDROCORTISONE 1% TOPICAL OINT 30 GM TUBE TP SCH ×2 (11:50→21:42)
[2017-03-04] MEDS: THIAMINE HCL 100 MG TABLET (FP) PO SCH (21:14)
[2017-03-05] MEDS ORDERED: METHADONE HCL 10 MG TABLET ONE (03:53)
[2017-03-05] MEDS ORDERED: METHADONE HCL 40 MG DISPERSABLE TABLET ONE (03:54)
[2017-03-05] MEDS: METHADONE 120 MG, METHADONE 30 MG PO SCH (06:00)
[2017-03-05] MEDS: PENICILLIN V POTASSIUM 500 MG TABLET PO SCH ×5 (06:00→23:46)
[2017-03-05] MEDS: AMITRIPTYLINE HCL 25 MG TABLET (FP) PO SCH ×3 (06:00→21:06)
[2017-03-05] MEDS: PRENATAL VITAMINS W/ FOLIC ACID TABLET (FP) PO SCH (10:20)
[2017-03-05] MEDS: cloNIDine HCL 0.1 MG TABLET PO SCH (10:20)
[2017-03-05] MEDS: HYDROCORTISONE 1% TOPICAL OINT 30 GM TUBE TP SCH ×2 (10:20→21:07)
[2017-03-05] MEDS: CITALOPRAM HYDROBROMIDE 10 MG TABLET (FP) PO SCH (10:20)
[2017-03-05] MEDS: ARIPiprazole 10 MG TABLET PO SCH (10:20)
[2017-03-05] MEDS: NICOTINE POLACRILEX 2 MG GUM BUC PRN ×2 (10:21→13:36)
[2017-03-05] MEDS: NICOTINE 21 MG/24 HOURS TOPICAL PATCH TD SCH (10:21)
[2017-03-05] MEDS: hydrOXYzine PAMOATE 25 MG CAPSULE (FP) PO PRN ×2 (13:35→21:06)
[2017-03-05] MEDS: THIAMINE HCL 100 MG TABLET (FP) PO SCH (21:07)
[2017-03-06] MEDS ORDERED: METHADONE HCL 10 MG TABLET ONE (03:17)
[2017-03-06] MEDS ORDERED: METHADONE HCL 40 MG DISPERSABLE TABLET ONE (03:17)
[2017-03-06] MEDS: METHADONE 120 MG, METHADONE 30 MG PO SCH (05:59)
[2017-03-06] MEDS: PENICILLIN V POTASSIUM 500 MG TABLET PO SCH ×4 (06:00→23:45)
[2017-03-06] MEDS: AMITRIPTYLINE HCL 25 MG TABLET (FP) PO SCH ×3 (06:00→21:42)
[2017-03-06] MEDS: PRENATAL VITAMINS W/ FOLIC ACID TABLET (FP) PO SCH (10:17)
[2017-03-06] MEDS: NICOTINE 21 MG/24 HOURS TOPICAL PATCH TD SCH (10:17)
[2017-03-06] MEDS: HYDROCORTISONE 1% TOPICAL OINT 30 GM TUBE TP SCH ×2 (10:17→21:42)
[2017-03-06] MEDS: cloNIDine HCL 0.1 MG TABLET PO SCH (10:17)
[2017-03-06] MEDS: CITALOPRAM HYDROBROMIDE 10 MG TABLET (FP) PO SCH (10:20)
[2017-03-06] MEDS: ARIPiprazole 10 MG TABLET PO SCH (10:21)
--- NOTE | 2017-03-06 15:08 | PN ---
S Progress Note Note: Patient reports a good response to Belsomra, no side-effects, will r/n today.
[2017-03-06] MEDS: SUVOREXANT 10 MG TABLET PO SCH (21:42)
[2017-03-06] MEDS: hydrOXYzine PAMOATE 25 MG CAPSULE (FP) PO PRN (21:42)
[2017-03-06] MEDS: THIAMINE HCL 100 MG TABLET (FP) PO SCH (21:42)
[2017-03-07] MEDS ORDERED: METHADONE HCL 10 MG TABLET ONE (04:11)
[2017-03-07] MEDS ORDERED: METHADONE HCL 40 MG DISPERSABLE TABLET ONE (04:11)
[2017-03-07] MEDS: METHADONE 120 MG, METHADONE 30 MG PO SCH (05:57)
[2017-03-07] MEDS: AMITRIPTYLINE HCL 25 MG TABLET (FP) PO SCH ×3 (05:57→21:13)
[2017-03-07] MEDS: PENICILLIN V POTASSIUM 500 MG TABLET PO SCH ×3 (05:57→17:01)
[2017-03-07] MEDS: NICOTINE POLACRILEX 2 MG GUM BUC PRN ×4 (06:45→21:16)
[2017-03-07] MEDS: CITALOPRAM HYDROBROMIDE 10 MG TABLET (FP) PO SCH (10:22)
[2017-03-07] MEDS: ARIPiprazole 10 MG TABLET PO SCH (10:22)
[2017-03-07] MEDS: HYDROCORTISONE 1% TOPICAL OINT 30 GM TUBE TP SCH ×2 (10:22→21:13)
[2017-03-07] MEDS: PRENATAL VITAMINS W/ FOLIC ACID TABLET (FP) PO SCH (10:22)
[2017-03-07] MEDS: NICOTINE 21 MG/24 HOURS TOPICAL PATCH TD SCH (10:22)
[2017-03-07] MEDS: cloNIDine HCL 0.1 MG TABLET PO SCH (10:22)
[2017-03-07] MEDS: THIAMINE HCL 100 MG TABLET (FP) PO SCH (21:12)
[2017-03-07] MEDS: hydrOXYzine PAMOATE 25 MG CAPSULE (FP) PO PRN (21:13)
[2017-03-07] MEDS: SUVOREXANT 10 MG TABLET PO SCH (21:13)
[2017-03-08] MEDS ORDERED: METHADONE HCL 10 MG TABLET ONE (05:40)
[2017-03-08] MEDS ORDERED: METHADONE HCL 40 MG DISPERSABLE TABLET ONE (05:40)
[2017-03-08] MEDS: AMITRIPTYLINE HCL 25 MG TABLET (FP) PO SCH ×3 (06:03→22:22)
[2017-03-08] MEDS: PENICILLIN V POTASSIUM 500 MG TABLET PO SCH ×4 (06:03→23:12)
[2017-03-08] MEDS: METHADONE 120 MG, METHADONE 30 MG PO SCH (06:03)
[2017-03-08] MEDS: cloNIDine HCL 0.1 MG TABLET PO SCH (10:04)
[2017-03-08] MEDS: ARIPiprazole 10 MG TABLET PO SCH (10:05)
[2017-03-08] MEDS: PRENATAL VITAMINS W/ FOLIC ACID TABLET (FP) PO SCH (10:05)
[2017-03-08] MEDS: CITALOPRAM HYDROBROMIDE 10 MG TABLET (FP) PO SCH (10:05)
[2017-03-08] MEDS: HYDROCORTISONE 1% TOPICAL OINT 30 GM TUBE TP SCH ×2 (10:05→23:12)
[2017-03-08] MEDS: NICOTINE 21 MG/24 HOURS TOPICAL PATCH TD SCH (10:05)
[2017-03-08] MEDS: hydrOXYzine PAMOATE 25 MG CAPSULE (FP) PO PRN (10:06)
[2017-03-08] MEDS: NICOTINE POLACRILEX 2 MG GUM BUC PRN (10:06)
[2017-03-08] MEDS ORDERED: PT OWN MED DRAWER 7, Y5N ONE (22:09)
[2017-03-08] MEDS: THIAMINE HCL 100 MG TABLET (FP) PO SCH (22:22)
[2017-03-08] MEDS: SUVOREXANT 10 MG TABLET PO SCH (22:23)
[2017-03-09] MEDS: hydrOXYzine PAMOATE 25 MG CAPSULE (FP) PO PRN (01:37)
[2017-03-09] MEDS ORDERED: METHADONE HCL 10 MG TABLET ONE (02:23)
[2017-03-09] MEDS ORDERED: METHADONE HCL 40 MG DISPERSABLE TABLET ONE (02:23)
[2017-03-09] MEDS: AMITRIPTYLINE HCL 25 MG TABLET (FP) PO SCH ×3 (06:07→22:09)
[2017-03-09] MEDS: METHADONE 120 MG, METHADONE 30 MG PO SCH (06:07)
[2017-03-09] MEDS: NICOTINE POLACRILEX 2 MG GUM BUC PRN ×3 (10:09→22:10)
[2017-03-09] MEDS: ARIPiprazole 10 MG TABLET PO SCH (10:09)
[2017-03-09] MEDS: cloNIDine HCL 0.1 MG TABLET PO SCH (10:09)
[2017-03-09] MEDS: PRENATAL VITAMINS W/ FOLIC ACID TABLET (FP) PO SCH (10:09)
[2017-03-09] MEDS: CITALOPRAM HYDROBROMIDE 10 MG TABLET (FP) PO SCH (10:09)
[2017-03-09] MEDS: NICOTINE 21 MG/24 HOURS TOPICAL PATCH TD SCH (10:10)
[2017-03-09] MEDS: HYDROCORTISONE 1% TOPICAL OINT 30 GM TUBE TP SCH ×2 (10:11→22:09)
[2017-03-09] MEDS: SUVOREXANT 10 MG TABLET PO SCH (22:09)
[2017-03-09] MEDS: THIAMINE HCL 100 MG TABLET (FP) PO SCH (22:09)
[2017-03-10] MEDS: hydrOXYzine PAMOATE 25 MG CAPSULE (FP) PO PRN ×2 (02:45→21:56)
[2017-03-10] MEDS ORDERED: METHADONE HCL 40 MG DISPERSABLE TABLET ONE (05:57)
[2017-03-10] MEDS ORDERED: METHADONE HCL 10 MG TABLET ONE (05:57)
[2017-03-10] MEDS ORDERED: METHADONE HCL 10 MG TABLET PO SCH (06:00)
[2017-03-10] MEDS: AMITRIPTYLINE HCL 25 MG TABLET (FP) PO SCH ×3 (06:08→21:56)
[2017-03-10] MEDS: METHADONE 120 MG, METHADONE 30 MG PO SCH (06:08)
[2017-03-10] MEDS: NICOTINE POLACRILEX 2 MG GUM BUC PRN ×3 (06:36→14:24)
[2017-03-10] MEDS: cloNIDine HCL 0.1 MG TABLET PO SCH (10:13)
[2017-03-10] MEDS: ARIPiprazole 10 MG TABLET PO SCH (10:13)
[2017-03-10] MEDS: CITALOPRAM HYDROBROMIDE 10 MG TABLET (FP) PO SCH (10:13)
[2017-03-10] MEDS: NICOTINE 21 MG/24 HOURS TOPICAL PATCH TD SCH (10:15)
[2017-03-10] MEDS: HYDROCORTISONE 1% TOPICAL OINT 30 GM TUBE TP SCH ×2 (10:15→21:57)
[2017-03-10] MEDS: PRENATAL VITAMINS W/ FOLIC ACID TABLET (FP) PO SCH (10:16)
[2017-03-10] MEDS: THIAMINE HCL 100 MG TABLET (FP) PO SCH (21:56)
[2017-03-10] MEDS: SUVOREXANT 10 MG TABLET PO SCH (21:56)
[2017-03-11] MEDS ORDERED: METHADONE HCL 10 MG TABLET ONE (04:16)
[2017-03-11] MEDS ORDERED: METHADONE HCL 40 MG DISPERSABLE TABLET ONE (04:17)
[2017-03-11] MEDS: AMITRIPTYLINE HCL 25 MG TABLET (FP) PO SCH (05:55)
[2017-03-11] MEDS: METHADONE 120 MG, METHADONE 30 MG PO SCH (05:56)
[2017-03-11 07:04] VITALS: TEMP 98.7
--- NOTE | 2017-03-11 08:28 | PN ---
Psychiatric Progress Note Vital Signs: Vital Signs Period Temp Pulse Resp BP Sys/Raines Pulse Ox Last 24 Hr 98.7 F 99-117 18-20 117-128/69-95 Date of Session: 03/11/17 Chief Complaint:: discharge visit HPI: Patient addressed Alcohol,Cocaine dependence comorbid with MDD. ROS: HTN,GERD medically managed. Current Medications: Active Medications Generic Name Dose Route Start Last Admin Trade Name Freq PRN Reason Stop Dose Admin Acetaminophen 650 mg 02/25/17 13:42 03/02/17 11:51 Tylenol - PO 650 mg Q4H PRN Administration FEVER OR PAIN Al Hydroxide/Mg Hydroxide 30 ml 02/25/17 13:42 03/02/17 14:50 Mylanta Oral Suspension - PO 30 ml Q6H PRN Administration DYSPEPSIA Amitriptyline HCl 25 mg 03/03/17 14:00 03/11/17 05:55 Elavil - PO 25 mg TID RAIZA Administration Aripiprazole 10 mg 02/26/17 10:30 03/10/17 10:13 Abilify PO 10 mg DAILY RAIZA Administration Citalopram Hydrobromide 30 mg 02/26/17 10:30 03/10/17 10:13 Celexa - PO 30 mg DAILY RAIZA Administration Clonidine 0.3 mg 02/26/17 10:00 03/10/17 10:13 Catapres - PO 0.3 mg DAILY RAIZA Administration Diphenhydramine HCl 50 mg 02/25/17 13:42 02/27/17 21:19 Benadryl - PO 50 mg HSMR1 PRN Administration FOR ITCHING Eucalyptus/Menthol/Phenol/Sorbitol 1 each 02/25/17 13:42 Cepastat Lozenge - MM Q4H PRN SORE THROAT Guaifenesin 10 ml 02/25/17 13:42 Robitussin Dm - PO Q6H PRN COUGH Hydrocortisone 1 applic 03/04/17 11:45 03/10/17 21:57 Hytone 1% Ointment - TP Not Given BID RAIZA Hydroxyzine Pamoate 25 mg 02/25/17 13:42 03/10/17 21:56 Vistaril - PO 25 mg Q4H PRN Administration AGITATION Ibuprofen 600 mg 03/03/17 13:44 Motrin - PO Q6H PRN FEVER Lidocaine HCl 20 ml 03/01/17 12:53 03/03/17 14:47 Xylocaine 2% Viscous Oral - MM 20 ml Q6HPO PRN Administration ORAL PAIN/MOUTH SORES Loperamide HCl 4 mg 02/25/17 13:42 Imodium - PO Q6H PRN DIARRHEA Magnesium Hydroxide 30 ml 02/25/17 13:42 02/28/17 10:05 Milk Of Magnesia - PO 30 ml DAILY PRN Administration CONSTIPATION Methadone HCl 120 mg/ 150 mg 03/10/17 06:00 03/11/17 05:56 Methadone HCl 30 mg PO 150 mg DAILY@0600 RAIZA Administration Nicotine 21 mg 02/28/17 12:30 03/10/17 10:15 Nicoderm Patch - TD Not Given DAILY RAIZA Nicotine Polacrilex 2 mg 02/28/17 12:27 03/10/17 14:24 Nicorette Gum - BUC 2 mg Q2H PRN Administration NICOTINE REPLACEMENT RX Multivit/Folic Acid/Iron 1 tab 02/26/17 10:00 03/10/17 10:16 Vitamins (Sjr) - PO 1 tab DAILY RAIZA Administration Pseudoephedrine/Triprolidine 1 combo 02/25/17 13:42 Actifed - PO TID PRN NASAL CONGESTION Thiamine HCl 100 mg 02/25/17 22:00 03/10/17 21:56 Vitamin B1 - PO 100 mg HS RAIZA Administration Current Side Effect: No Lab tests ordered: No Lab tests reviewed: Yes Provider note:: Patient has completed today treatment and met his gaols, will continue to address his issues at [facility]. He focused on importance of changing attitude for the utilization of supports, improving coping skills. Patient continues finding that his current medications effective, he feels more energetic, less anxious. No side-effects reported. Scripts provided for 30 days. He is stable for discharge today. Total face to face time:: 25 Mental Status Exam - Mental Status Exam Alert and Oriented to: Time, Place, Person Cognitive Function: Good Patient Appearance: Well Groomed Mood: Hopeful Affect: Appropriate, Mood Congruent Patient Behavior: Appropriate, Cooperative Speech Pattern: Clear, Appropriate Voice Loudness: Normal Thought Process: Intact, Goal Oriented Thought Disorder: Not Present Hallucinations: Denies Suicidal Ideation: Denies Homicidal Ideation: Denies Insight/Judgement: Fair Sleep: Fair Appetite: Fair Muscle strength/Tone: Normal Gait/Station: Normal
[2017-03-11] MEDS: PRENATAL VITAMINS W/ FOLIC ACID TABLET (FP) PO SCH (09:08)
[2017-03-11] MEDS: cloNIDine HCL 0.1 MG TABLET PO SCH (09:08)
[2017-03-11] MEDS: CITALOPRAM HYDROBROMIDE 10 MG TABLET (FP) PO SCH (09:08)
[2017-03-11] MEDS: NICOTINE POLACRILEX 2 MG GUM BUC PRN (09:09)
[2017-03-11] MEDS: HYDROCORTISONE 1% TOPICAL OINT 30 GM TUBE TP SCH (09:09)
[2017-03-11] MEDS: NICOTINE 21 MG/24 HOURS TOPICAL PATCH TD SCH (09:09)
[2017-03-11] MEDS: ARIPiprazole 10 MG TABLET PO SCH (09:09)
[2017-03-11 09:51] VITALS: BP 147/98; PULSE 113
== END 2017-03-11 10:00 | disposition home or self-care (01) | DRG 772 ==
LOC: YASAS 12:59 → Y3W 13:01
PROVIDERS: ADMIT Psychiatry & Neurology Psychiatry; ATTEND Psychiatry & Neurology Psychiatry
PROC: HZ42ZZZ Group Counseling for Substance Abuse Treatment, Cognitive-Behavioral (ICD-10-PCS; principal; 2017-03-11)
DX: F11.20 Opioid dependence, uncomplicated (principal); F10.230 Alcohol dependence with withdrawal, uncomplicated; F14.20 Cocaine dependence, uncomplicated; F12.20 Cannabis dependence, uncomplicated; F17.213 Nicotine dependence, cigarettes, with withdrawal; F33.1 Major depressive disorder, recurrent, moderate; I10 Essential (primary) hypertension; K21.9 Gastro-esophageal reflux disease without esophagitis; B18.2 Chronic viral hepatitis C; H46.03 Optic papillitis, bilateral; G40.509 Epileptic seizures related to external causes, not intractable, without status epilepticus

== ENCOUNTER 2018-05-28 11:34 | Inpatient (IN) | payer OTHER ==
[2018-05-28 12:42] VITALS: BMI 19.2
--- NOTE | 2018-05-28 13:24 | HP ---
CIWA Score Nausea/Vomitin Muscle Tremors: 2 Anxiety: 2 Agitation: 2 Paroxysmal Sweats: 1-Minimal Palms Moist Orientation: 0-Oriented Tacttile Disturbances: 1-Very Mild Itch/Numbness Auditory Disturbances: 1-Very Mild Visual Disturbances: 0-None Headache: 2-Mild CIWA-Ar Total Score: 13 - Admission Criteria [facility]ASAS Guidelines: Admission for Medically Managed Detox: Requires at least one of the followin. CIWA greater than 12 2. Seizures within the past 24 hours 3. Delirium tremens within the past 24 hours 4. Hallucinations within the past 24 hours 5. Acute intervention needed for co occurring medical disorder 6. Acute intervention needed for co occurring psychiatric disorder 7. Severe withdrawal that cannot be handled at a lower level of care (continued vomiting, continued diarrhea, abnormal vital signs) requiring intravenous medication and/or fluids 8. Patient presents the following: CIWA greater than 12 Admission Criteria Met: Admission criteria met Admission ROS BHS - HPI Chief Complaint: i need help to stop drinking alcohol and cocaine Allergies/Adverse Reactions: Allergies Allergy/AdvReac Type Severity Reaction Status Date / Time No Known Allergies Allergy Verified 05/28/18 12:47 History of Present Illness: this 47 years old male with alcohol and cocaine dependence,,seeking detox, withdrawal symptom last detox 11/28 ,did not recall facility syncope alcohol related nicotine dependence weight loss anxiety,depression,insomnia non compliance mmtp 170 mgs/day,last medicated 05/27/18 longest period of sobriety 7 months hepatitis c alcohol related seizure Exam Limitations: No Limitations - Ebola screening Have you traveled outside of the country in the last 21 days: No Have you had contact with anyone from an Ebola affected area: No Have you been sick,other than usual withdrawal symptoms: No Do you have a fever: No - Review of Systems Constitutional: Loss of Appetite, Malaise, Night Sweats, Changes in sleep, Weakness, Unintentional Wgt. Loss EENT: reports: Nose Congestion Respiratory: reports: No Symptoms reported Cardiac: reports: No Symptoms Reported GI: reports: Nausea, Poor Appetite, Abdominal cramping : reports: No Symptoms Reported Musculoskeletal: reports: Back Pain, Muscle Pain Integumentary: reports: Dryness Neuro: reports: Headache, Tremors Endocrine: reports: No Symptoms Reported Hematology: reports: No Symptoms Reported Psychiatric: reports: No Sypmtoms Reported, Judgement Intact, Mood/Affect Appropiate, Orientated x3, Anxious, Depressed (insomnia) Patient History - Patient Medical History Hx Anemia: No Hx Asthma: No Hx Chronic Obstructive Pulmonary Disease (COPD): No Hx Cancer: No Hx Cardiac Disorders: No Hx Congestive Heart Failure: No Hx Hypertension: No Hx Hypercholesterolemia: No Hx Pacemaker: No HX Cerebrovascular Accident: No Hx Seizures: Yes (alcohol related-last episode was in 2016) Hx Dementia: No Hx Diabetes: No Hx Gastrointestinal Disorders: No Hx Liver Disease: No Hx Genitourinary Disorders: No Hx Sexually Transmitted Disorders: No Hx Renal Disease (ESRD): No Hx Thyroid Disease: No Hx Human Immunodeficiency Virus (HIV): No (NEGATIVE HX last 2016) Hx Hepatitis C: Yes (RESOLVED PER PT) Hx Depression: Yes Hx Suicide Attempt: No Hx Bipolar Disorder: Yes Hx Schizophrenia: No Other Medical History: no suicidal,no homicidal - Patient Surgical History Past Surgical History: No Hx Neurologic Surgery: No Hx Cataract Extraction: No Hx Cardiac Surgery: No Hx Lung Surgery: No Hx Breast Surgery: No Hx Breast Biopsy: No Hx Abdominal Surgery: No Hx Appendectomy: No Hx Cholecystectomy: No Hx Genitourinary Surgery: No Hx Orthopedic Surgery: No Anesthesia Reaction: No - PPD History Previous Implant?: Yes Documented Results: Negative w/proof Implanted On Prior R Admission?: Yes Date: 05/31/16 Results: 0 mm PPD to be Administered?: Yes - Smoking Cessation Smoking history: Current some day smoker Have you smoked in the past 12 months: Yes Aproximately how many cigarettes per day: 10 Cigars Per Day: 0 Hx Chewing Tobacco Use: No Initiated information on smoking cessation: Yes 'Breaking Loose' booklet given: 05/28/18 - Substance & Tx. History Hx Alcohol Use: Yes Hx Substance Use: Yes Substance Use Type: Alcohol, Cocaine Hx Substance Use Treatment: Yes (11/28 did not recall facility) - Substances Abused Crack Route: Smoking Frequency: Daily Amount used: $40 Age of first use: 23 Date of Last Use: 05/27/18 Alcohol-beer Route: Oral Frequency: Daily Amount used: 3-6 pks. Age of first use: 14 Date of Last Use: 05/27/18 Family Disease History - Family Disease History Family Disease History: Other: Grandparent (alcohol,), Father (alcohol, ) Admission Physical Exam BHS - Vital Signs Vital Signs: Vital Signs - 24 hr 05/28/18 12:37 Temperature 97.6 F Pulse Rate 54 L Respiratory 17 Rate Blood Pressure 124/76 - Physical General Appearance: Yes: Moderate Distress, Tremorous, Irritable, Sweating, Anxious HEENTM: Yes: Normal ENT Inspection, TO, Pharynx Normal Respiratory: Yes: Lungs Clear, Normal Breath Sounds, No Respiratory Distress Neck: Yes: Within Normal Limits, Supple, Trachea in good position Breast: Yes: Within Normal Limits Cardiology: Yes: Bradycardia Abdominal: Yes: Within Normal Limits, Normal Bowel Sounds, Non Tender, Flat, Soft Genitourinary: Yes: Within Normal Limits Back: Yes: Muscle Spasm Musculoskeletal: Yes: Back pain, Muscle Pain Extremities: Yes: Tremors Neurological: Yes: 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, Fully Oriented, Alert, Motor Strength 5/5 Integumentary: Yes: Dry Lymphatic: Yes: Within Normal Limits - Diagnostic (1) Alcohol dependence with uncomplicated withdrawal Current Visit: Yes Status: Acute (2) Cocaine dependence Current Visit: No Status: Acute (3) Insomnia Current Visit: No Status: Acute (4) History of hepatitis C Current Visit: No Status: Chronic (5) Methadone maintenance therapy patient Current Visit: Yes Status: Chronic Comment: 130 mg verificaiton pending (6) Bipolar disorder Current Visit: Yes Status: Acute (7) Dehydration Current Visit: Yes Status: Acute Cleared for Admission [facility] - Detox or Rehab [facility] Level of Care: Medically Managed Detox Regimen/Protocol: Librium [facility] Breath Alcohol Content Breath Alcohol Content: 0 Urine Drug Screen - Results Drug Screen Negative: No Urine Drug Screen Results: THC-Marijuana, JAXON-Cocaine, MTD-Methadone
[2018-05-28] MEDS ORDERED: MENTHOL/PHENOL 1 EACH UD MM PRN (13:35)
[2018-05-28] MEDS ORDERED: MAGNESIUM CITRATE 300 ML BOTTLE PO PRN (13:35)
[2018-05-28] MEDS ORDERED: IBUPROFEN 400 MG TABLET (FP) PO PRN (13:35)
[2018-05-28] MEDS ORDERED: ACETAMINOPHEN 325 MG TABLET (FP) PO PRN (13:35)
[2018-05-28] MEDS ORDERED: MAGNESIUM HYDROX 2400MG/30ML ORAL SUSPENSION 30 ML CUP PO PRN (13:35)
[2018-05-28] MEDS ORDERED: guaiFENesin/D-METHORPHAN HB 10 ML UNIT-DOSE CUPS PO PRN (13:35)
[2018-05-28] MEDS ORDERED: LOPERAMIDE HCL 2 MG CAPSULE PO PRN (13:35)
[2018-05-28] MEDS ORDERED: P-EPHED 60MG/TRIPROLIDI 2.5MG TABLET PO PRN (13:35)
[2018-05-28] MEDS ORDERED: METHADONE HCL 10 MG TABLET PO ONE (13:40)
[2018-05-28] MEDS ORDERED: METHADONE 160 MG, METHADONE 10 MG PO ONE (14:00)
[2018-05-28] MEDS ORDERED: METHADONE HCL 10 MG TABLET ONE (14:51)
[2018-05-28] MEDS ORDERED: METHADONE HCL 40 MG DISPERSABLE TABLET ONE (14:51)
--- NOTE | 2018-05-28 16:20 | CONSULT ---
[facility] Psychiatric Consult - Data Date of interview: 05/28/18 Admission source: [facility] Identifying data: Patient is a 47 year old single male, father of three, unemployed, domiciled, and is supported by [facility]. This is patient's first admission to detox at [facility]. Patient admitted to for alcohol and cocaine dependence. Substance Abuse History: Smoking Cessation. Smoking history: Current some day smoker. Have you smoked in the past 12 months: Yes. Aproximately how many cigarettes per day: 10. Cigars Per Day: 0. Hx Chewing Tobacco Use: No. Initiated information on smoking cessation: Yes. 'Breaking Loose' booklet given : 05/28/18. - Substance & Tx. History. Hx Alcohol Use: Yes. Hx Substance Use : Yes. Substance Use Type: Alcohol, Cocaine. Hx Substance Use Treatment: Yes ( 11/28 did not recall facility). - Substances Abused. Crack. Route: Smoking. Frequency: Daily. Amount used: $40. Age of first use: 23. Date of Last Use: 05/27/18. Alcohol-beer. Route: Oral. Frequency: Daily. Amount used: 3-6 pks. Age of first use: 14. Date of Last Use: 05/27/18 Medical History: Seizures (alcohol related in 2016) Psychiatric History: Patient reports multiple psychiatric hospitalizations, most recently last year at [facility] in [place] after reporting depression and anxiety. He is also known to [facility]. Outpatient psychiatric care is provided at [facility]. Patient is prescribed celexa 40mg + Abilify 20mg. Most recent prescription was sent to patient's pharmacy on 03/30/18. Patient is currently on methadone maintenance 170mg. Patient requesting to restart medication at lower doses. Physical/Sexual Abuse/Trauma History: denies. Mental Status Exam - Mental Status Exam Alert and Oriented to: Time, Place, Person Cognitive Function: Good Patient Appearance: Unkempt Mood: Euthymic Affect: Mood Congruent Patient Behavior: Fatigued, Cooperative Speech Pattern: Appropriate Voice Loudness: Moderately Soft/Quiet Thought Process: Goal Oriented Thought Disorder: Not Present Hallucinations: Denies Suicidal Ideation: Denies Homicidal Ideation: Denies Insight/Judgement: Poor Sleep: Poorly Appetite: Fair Muscle strength/Tone: Normal Gait/Station: Normal Psychiatric Findings - Problem List ([place] 1, 2,3) (1) Alcohol dependence with uncomplicated withdrawal Current Visit: Yes Status: Acute (2) Substance induced mood disorder Current Visit: Yes Status: Acute (3) Methadone maintenance therapy patient Current Visit: Yes Status: Chronic Comment: 130 mg verificaiton pending (4) Cannabis dependence Current Visit: No Status: Chronic - Initial Treatment Plan Initial Treatment Plan: Psychoeducation provided. Detoxification in progress. Will order celexa 10mg + abilify 10mg qhs (will start abilify on 05/29/18). Benefits and side effects discussed. Verbal consent given.
[2018-05-28] MEDS: chlordiazePOXIDE HCL 25 MG CAPSULE PO SCH ×2 (17:52→22:25)
[2018-05-28] MEDS ORDERED: MELATONIN 5 MG TABLETS PO PRN (22:00)
[2018-05-28 22:10] LABS: URINE APPEARANCE SLCLOUDY; URINE BILIRUBIN NEGATIVE (<2.0 mg/dL); URINE COLOR YELLOW; URINE GLUCOSE (UA) NEGATIVE (NEGATIVE); URINE KETONE NEGATIVE (NEGATIVE); URINE LEUK ESTERASE NEGATIVE (NEGATIVE); URINE NITRITE NEGATIVE (NEGATIVE); URINE PROTEIN NEGATIVE (NEGATIVE)
[2018-05-28] MEDS: THIAMINE HCL 100 MG TABLET (FP) PO SCH (22:25)
[2018-05-29] MEDS ORDERED: METHADONE HCL 10 MG TABLET ONE (04:14)
[2018-05-29] MEDS ORDERED: METHADONE HCL 40 MG DISPERSABLE TABLET ONE (04:15)
[2018-05-29] MEDS: chlordiazePOXIDE HCL 25 MG CAPSULE PO SCH ×4 (05:47→22:09)
[2018-05-29] MEDS: METHADONE 160 MG, METHADONE 10 MG PO SCH (05:48)
[2018-05-29] MEDS ORDERED: METHADONE HCL 40 MG DISPERSABLE TABLET PO SCH (06:00)
--- NOTE | 2018-05-29 08:56 | EKG ---
Test Reason : Blood Pressure : / mmHG Vent. Rate : 056 BPM Atrial Rate : 056 BPM P-R Int : 190 ms QRS Dur : 094 ms QT Int : 440 ms P-R-T Axes : 068 078 072 degrees QTc Int : 424 ms SINUS BRADYCARDIA INCOMPLETE RBBB Confirmed by EVA STUART MD ([id number]) on 05/29/2018 8:55:51 AM Referred By: Confirmed By:EVA STUART MD
[2018-05-29 10:02] LABS: HEMATOCRIT 41.6 % (35.4-49); HEMOGLOBIN 13.4 GM/dL (11.7-16.9); MCH 29.2 pg (25.7-33.7); MCHC 32.1 g/dl (32.0-35.9); MEAN PLT VOLUME 10.4 fl (7.5-11.1); PLATELET COUNT 197 K/MM3 (134-434); RBC 4.57 M/mm3 (4.00-5.60); RDW 14.3 % (11.9-15.9); WHITE BLOOD COUNT 7.2 K/mm3 (4.0-10.0)
[2018-05-29] MEDS: PRENATAL VITAMINS W/ FOLIC ACID TABLET (FP) PO SCH (10:18)
[2018-05-29] MEDS: CITALOPRAM HYDROBROMIDE 20 MG TABLET (FP) PO SCH (10:23)
[2018-05-29 10:51] LABS: ALBUMIN 3.7 g/dl (3.4-5.0); ALK PHOS 53 U/L (45-117); ANION GAP 9 MMOL/L (8-16); BILIRUBIN,TOTAL 0.3 mg/dL (0.2-1); BLOOD UREA NITROGEN 23 mg/dL (7-18); CALCIUM 8.9 mg/dL (8.5-10.1); CHLORIDE 106 mmol/L (98-107); CO2 27 mmol/L (21-32); CREATININE 0.9 mg/dL (0.55-1.3); GLUCOSE,RANDOM 122 mg/dL (74-106); POTASSIUM 4.5 mmol/L (3.5-5.1); SGOT/AST 9 U/L (15-37); SGPT/ALT 16 U/L (13-61); SODIUM 141 mmol/L (136-145); TOT PROT 6.6 g/dl (6.4-8.2)
[2018-05-29] MEDS: chlordiazePOXIDE HCL 25 MG CAPSULE PO PRN ×2 (12:39→19:18)
--- NOTE | 2018-05-29 13:05 | PN ---
S CIWA - CIWA Score Nausea/Vomitin Muscle Tremors: 4-Moderate,w/Arms Extend Anxiety: 4-Mod. Anxious/Guarded Agitation: 2 Paroxysmal Sweats: 3 Orientation: 0-Oriented Tacttile Disturbances: 0-None Auditory Disturbances: 0-None Visual Disturbances: 0-None Headache: 1-Very Mild CIWA-Ar Total Score: 16 BHS Progress Note (SOAP) Subjective: Tremor, headache, nausea, crawling sensation on skin, interrupted sleep. As per counselor, Mr. Omalley, patient for discharge on Friday to [facility] rehab. Patient will be kept until Friday due to increased withdrawal symptoms. Objective: 05/29/18 13:05 Last Vital Signs Temp Pulse Resp BP Pulse Ox 97.4 F L 56 L 20 95/70 05/29/18 10:05 05/29/18 10:05 05/29/18 10:05 05/29/18 10:05 Hypotension noted Laboratory Tests 05/28/18 05/28/18 05/29/18 06:30 14:23 06:30 WBC 7.2 RBC 4.57 Hgb 13.4 Hct 41.6 MCV 91.0 MCH 29.2 MCHC 32.1 RDW 14.3 Plt Count 197 MPV 10.4 Sodium Potassium Chloride Carbon Dioxide Anion Gap BUN Creatinine Creat Clearance w eGFR Random Glucose Calcium Total Bilirubin AST ALT Alkaline Phosphatase Total Protein Albumin Urine Color Yellow Urine Appearance Slcloudy Urine pH 6.0 Ur Specific [place] 1.027 Urine Protein Negative Urine Glucose (UA) Negative Urine Ketones Negative Urine Blood Negative Urine Nitrite Negative Urine Bilirubin Negative Urine Urobilinogen 2.0 Ur Leukocyte Esterase Negative RPR Titer HIV 1&2 Antibody Screen Negative HIV P24 Antigen Negative 05/29/18 05/29/18 06:30 06:30 WBC RBC Hgb Hct MCV MCH MCHC RDW Plt Count MPV Sodium 141 Potassium 4.5 Chloride 106 Carbon Dioxide 27 Anion Gap 9 BUN 23 H Creatinine 0.9 Creat Clearance w eGFR > 60 Random Glucose 122 H Calcium 8.9 Total Bilirubin 0.3 AST 9 L ALT 16 Alkaline Phosphatase 53 Total Protein 6.6 Albumin 3.7 Urine Color Urine Appearance Urine pH Ur Specific [place] Urine Protein Urine Glucose (UA) Urine Ketones Urine Blood Urine Nitrite Urine Bilirubin Urine Urobilinogen Ur Leukocyte Esterase RPR Titer Nonreactive HIV 1&2 Antibody Screen HIV P24 Antigen Labs reviewed: bun 23 Assessment: 05/29/18 13:06 Withdrawal symptoms Azotemia and hypotension noted Plan: Continue detox Azotemia: encouraged PO water intake Hypotension: asymptomatic, encouraged to drink more water, continue to monitor
[2018-05-29] MEDS: hydrOXYzine PAMOATE 25 MG CAPSULE (FP) PO PRN (18:08)
[2018-05-29] MEDS: THIAMINE HCL 100 MG TABLET (FP) PO SCH (22:08)
[2018-05-29] MEDS: ARIPiprazole 10 MG TABLET PO SCH (22:09)
[2018-05-30] MEDS ORDERED: METHADONE HCL 10 MG TABLET ONE (03:33)
[2018-05-30] MEDS ORDERED: METHADONE HCL 40 MG DISPERSABLE TABLET ONE (03:33)
[2018-05-30] MEDS: chlordiazePOXIDE HCL 25 MG CAPSULE PO SCH ×2 (05:34→10:24)
[2018-05-30] MEDS: METHADONE 160 MG, METHADONE 10 MG PO SCH (05:34)
[2018-05-30] MEDS: CITALOPRAM HYDROBROMIDE 20 MG TABLET (FP) PO SCH (10:24)
[2018-05-30] MEDS: PRENATAL VITAMINS W/ FOLIC ACID TABLET (FP) PO SCH (10:24)
[2018-05-30] MEDS ORDERED: TRIMETHOBENZAMIDE HCL 200MG/2ML INJ IM PRN (10:27)
--- NOTE | 2018-05-30 12:50 | PN ---
S CIWA - CIWA Score Nausea/Vomitin Muscle Tremors: 2 Anxiety: 2 Agitation: 1-Slight > Activity Paroxysmal Sweats: 2 Orientation: 0-Oriented Tacttile Disturbances: 0-None Auditory Disturbances: 0-None Visual Disturbances: 0-None Headache: 0-None Present CIWA-Ar Total Score: 12 BHS Progress Note (SOAP) Subjective: PATIENT VOMITED X 2 THIS MORNING, C/O SHAKES/SWEATING AND ANXIETY. Objective: 05/30/18 12:49 Vital Signs Temperature 97.2 F L 05/30/18 09:14 Pulse Rate 72 05/30/18 09:14 Respiratory Rate 18 05/30/18 09:14 Blood Pressure 125/88 05/30/18 09:14 O2 Sat by Pulse Oximetry (%) Laboratory Tests 05/28/18 05/28/18 05/29/18 06:30 14:23 06:30 WBC 7.2 RBC 4.57 Hgb 13.4 Hct 41.6 MCV 91.0 MCH 29.2 MCHC 32.1 RDW 14.3 Plt Count 197 MPV 10.4 Sodium Potassium Chloride Carbon Dioxide Anion Gap BUN Creatinine Creat Clearance w eGFR Random Glucose Calcium Total Bilirubin AST ALT Alkaline Phosphatase Total Protein Albumin Urine Color Yellow Urine Appearance Slcloudy Urine pH 6.0 Ur Specific [place] 1.027 Urine Protein Negative Urine Glucose (UA) Negative Urine Ketones Negative Urine Blood Negative Urine Nitrite Negative Urine Bilirubin Negative Urine Urobilinogen 2.0 Ur Leukocyte Esterase Negative RPR Titer HIV 1&2 Antibody Screen Negative HIV P24 Antigen Negative 05/29/18 05/29/18 06:30 06:30 WBC RBC Hgb Hct MCV MCH MCHC RDW Plt Count MPV Sodium 141 Potassium 4.5 Chloride 106 Carbon Dioxide 27 Anion Gap 9 BUN 23 H Creatinine 0.9 Creat Clearance w eGFR > 60 Random Glucose 122 H Calcium 8.9 Total Bilirubin 0.3 AST 9 L ALT 16 Alkaline Phosphatase 53 Total Protein 6.6 Albumin 3.7 Urine Color Urine Appearance Urine pH Ur Specific [place] Urine Protein Urine Glucose (UA) Urine Ketones Urine Blood Urine Nitrite Urine Bilirubin Urine Urobilinogen Ur Leukocyte Esterase RPR Titer Nonreactive HIV 1&2 Antibody Screen HIV P24 Antigen PE: SKIN WARM, BEADS OF SWEAT ON FOREHEAD ALERT AND ORIENTED X 3 EXT FULL ROM, + TREMORS ANXIOUS Assessment: 11/17/18 12:50 WITHDRAWAL SX Plan: CONTINUE DETOX REGIMEN ENCOURAGE ORAL FLUIDS TIGAN ORDERED PRN CONTINUE TO MONITOR CLINICALLY
[2018-05-30] MEDS: chlordiazePOXIDE 5 MG CAPSULE PO SCH ×2 (17:23→22:33)
[2018-05-30] MEDS: MAG HYDROX/AL HYDROX/SIMETH 30 ML UNIT-DOSE CUP PO PRN (18:49)
[2018-05-30] MEDS: ARIPiprazole 10 MG TABLET PO SCH (22:33)
[2018-05-30] MEDS: THIAMINE HCL 100 MG TABLET (FP) PO SCH (22:33)
[2018-05-31] MEDS ORDERED: METHADONE HCL 40 MG DISPERSABLE TABLET ONE (03:54)
[2018-05-31] MEDS ORDERED: METHADONE HCL 10 MG TABLET ONE (03:54)
[2018-05-31] MEDS: chlordiazePOXIDE 5 MG CAPSULE PO SCH ×2 (05:36→10:15)
[2018-05-31] MEDS: METHADONE 160 MG, METHADONE 10 MG PO SCH (05:36)
[2018-05-31] MEDS: MAG HYDROX/AL HYDROX/SIMETH 30 ML UNIT-DOSE CUP PO PRN ×2 (06:10→22:29)
[2018-05-31] MEDS: CITALOPRAM HYDROBROMIDE 20 MG TABLET (FP) PO SCH (10:14)
[2018-05-31] MEDS: PRENATAL VITAMINS W/ FOLIC ACID TABLET (FP) PO SCH (10:14)
--- NOTE | 2018-05-31 15:43 | PN ---
BHS Progress Note (SOAP) Subjective: Vomiting, stomach ache, diarrhea. Patient refused [facility] rehab as per counselor, Mr. Omalley Objective: 05/31/18 15:41 Last Vital Signs Temp Pulse Resp BP Pulse Ox 96.4 F L 77 18 105/72 05/31/18 13:18 05/31/18 13:18 05/31/18 13:18 05/31/18 13:18 Laboratory Tests 05/28/18 05/28/18 05/29/18 06:30 14:23 06:30 WBC 7.2 RBC 4.57 Hgb 13.4 Hct 41.6 MCV 91.0 MCH 29.2 MCHC 32.1 RDW 14.3 Plt Count 197 MPV 10.4 Sodium Potassium Chloride Carbon Dioxide Anion Gap BUN Creatinine Creat Clearance w eGFR Random Glucose Calcium Total Bilirubin AST ALT Alkaline Phosphatase Total Protein Albumin Urine Color Yellow Urine Appearance Slcloudy Urine pH 6.0 Ur Specific [place] 1.027 Urine Protein Negative Urine Glucose (UA) Negative Urine Ketones Negative Urine Blood Negative Urine Nitrite Negative Urine Bilirubin Negative Urine Urobilinogen 2.0 Ur Leukocyte Esterase Negative RPR Titer HIV 1&2 Antibody Screen Negative HIV P24 Antigen Negative 05/29/18 05/29/18 06:30 06:30 WBC RBC Hgb Hct MCV MCH MCHC RDW Plt Count MPV Sodium 141 Potassium 4.5 Chloride 106 Carbon Dioxide 27 Anion Gap 9 BUN 23 H Creatinine 0.9 Creat Clearance w eGFR > 60 Random Glucose 122 H Calcium 8.9 Total Bilirubin 0.3 AST 9 L ALT 16 Alkaline Phosphatase 53 Total Protein 6.6 Albumin 3.7 Urine Color Urine Appearance Urine pH Ur Specific [place] Urine Protein Urine Glucose (UA) Urine Ketones Urine Blood Urine Nitrite Urine Bilirubin Urine Urobilinogen Ur Leukocyte Esterase RPR Titer Nonreactive HIV 1&2 Antibody Screen HIV P24 Antigen Labs reviewed: bun 23 Assessment: 05/31/18 15:42 Withdrawal symptoms Azotemia noted Plan: Continue detox Patient for discharge home tomorrow. Patient refused referral to [facility] rehab. Azotemia: encouraged PO water intake
[2018-05-31] MEDS: chlordiazePOXIDE HCL 10 MG CAPSULE PO SCH ×2 (17:47→22:29)
[2018-05-31] MEDS: hydrOXYzine PAMOATE 25 MG CAPSULE (FP) PO PRN (19:02)
[2018-05-31] MEDS ORDERED: DIPHENOXYLATE 2.5/ATROPINE.025 1 COMBO TABLET PO PRN (21:50)
[2018-05-31] MEDS ORDERED: TRIMETHOBENZAMIDE HCL 200MG/2ML INJ IM PRN (21:51)
[2018-05-31] MEDS: THIAMINE HCL 100 MG TABLET (FP) PO SCH (22:29)
[2018-05-31] MEDS: ARIPiprazole 10 MG TABLET PO SCH (22:29)
[2018-06-01] MEDS ORDERED: METHADONE HCL 10 MG TABLET ONE (04:22)
[2018-06-01] MEDS ORDERED: METHADONE HCL 40 MG DISPERSABLE TABLET ONE (04:22)
[2018-06-01] MEDS ORDERED: DIPHENOXYLATE 2.5/ATROPINE.025 1 COMBO TABLET PO PRN (04:31)
[2018-06-01] MEDS: METHADONE 160 MG, METHADONE 10 MG PO SCH (05:32)
[2018-06-01] MEDS: chlordiazePOXIDE HCL 10 MG CAPSULE PO SCH (06:59)
[2018-06-01 09:12] VITALS: BP 104/71; PULSE 82; TEMP 98.8
--- NOTE | 2018-06-01 11:54 | DS ---
[facility] Detox Discharge Summary Admission Date: 05/28/18 Discharge Date: 06/01/18 - History Present History: Alcohol Dependence Additional Comments: 47 years old male admitted on 05/28/18 for alcohol withdrawal sx completed alcohol detox regimen [facility] - Physical Exam Results Vital Signs: Vital Signs Temperature 98.8 F 06/01/18 09:12 Pulse Rate 82 06/01/18 09:12 Respiratory Rate 18 06/01/18 09:12 Blood Pressure 104/71 06/01/18 09:12 O2 Sat by Pulse Oximetry (%) Pertinent Admission Physical Exam Findings: alcohol withdrawal sx Vital Signs Temperature 98.8 F 06/01/18 09:12 Pulse Rate 82 06/01/18 09:12 Respiratory Rate 18 06/01/18 09:12 Blood Pressure 104/71 06/01/18 09:12 O2 Sat by Pulse Oximetry (%) Laboratory Last Values WBC 7.2 K/mm3 (4.0-10.0) 05/29/18 06:30 RBC 4.57 M/mm3 (4.00-5.60) 05/29/18 06:30 Hgb 13.4 GM/dL (11.7-16.9) 05/29/18 06:30 Hct 41.6 % (35.4-49) 05/29/18 06:30 MCV 91.0 fl (80-96) 05/29/18 06:30 MCH 29.2 pg (25.7-33.7) 05/29/18 06:30 MCHC 32.1 g/dl (32.0-35.9) 05/29/18 06:30 RDW 14.3 % (11.9-15.9) 05/29/18 06:30 Plt Count 197 K/MM3 (134-434) 05/29/18 06:30 MPV 10.4 fl (7.5-11.1) 05/29/18 06:30 Sodium 141 mmol/L (136-145) 05/29/18 06:30 Potassium 4.5 mmol/L (3.5-5.1) 05/29/18 06:30 Chloride 106 mmol/L (98-107) 05/29/18 06:30 Carbon Dioxide 27 mmol/L (21-32) 05/29/18 06:30 Anion Gap 9 MMOL/L (8-16) 05/29/18 06:30 BUN 23 mg/dL (7-18) H 05/29/18 06:30 Creatinine 0.9 mg/dL (0.55-1.3) 05/29/18 06:30 Creat Clearance w eGFR > 60 (>60) 05/29/18 06:30 Random Glucose 122 mg/dL (74-106) H 05/29/18 06:30 Calcium 8.9 mg/dL (8.5-10.1) 05/29/18 06:30 Total Bilirubin 0.3 mg/dL (0.2-1) 05/29/18 06:30 AST 9 U/L (15-37) L 05/29/18 06:30 ALT 16 U/L (13-61) 05/29/18 06:30 Alkaline Phosphatase 53 U/L (45-117) 05/29/18 06:30 Total Protein 6.6 g/dl (6.4-8.2) 05/29/18 06:30 Albumin 3.7 g/dl (3.4-5.0) 05/29/18 06:30 Urine Color Yellow 05/28/18 14:23 Urine Appearance Slcloudy 05/28/18 14:23 Urine pH 6.0 (5.0-8.0) 05/28/18 14:23 Ur Specific [place] 1.027 (1.010-1.035) 05/28/18 14:23 Urine Protein Negative (NEGATIVE) 05/28/18 14:23 Urine Glucose (UA) Negative (NEGATIVE) 05/28/18 14:23 Urine Ketones Negative (NEGATIVE) 05/28/18 14:23 Urine Blood Negative (NEGATIVE) 05/28/18 14:23 Urine Nitrite Negative (NEGATIVE) 05/28/18 14:23 Urine Bilirubin Negative (<2.0 mg/dL) 05/28/18 14:23 Urine Urobilinogen 2.0 mg/dL (0.2-1.0) 05/28/18 14:23 Ur Leukocyte Esterase Negative (NEGATIVE) 05/28/18 14:23 RPR Titer Nonreactive (NONREACTIVE) 05/29/18 06:30 HIV 1&2 Antibody Screen Negative 05/28/18 06:30 HIV P24 Antigen Negative 05/28/18 06:30 lab noted - Treatment Hospital Course: Detox Protocol Followed, Detoxed Safely, Responded well, Discharged Condition Good, Rehab Referral Accepted Patient has Accepted a [facility] Referral [facility]: [facility] - Medication Discharge Medications: Ambulatory Orders Citalopram Hydrobromide [Celexa -] 40 mg PO DAILY 11/22/16 Aripiprazole [Abilify -] 10 mg PO DAILY #30 tablet 02/21/17 - Diagnosis (1) Alcohol dependence with uncomplicated withdrawal Status: Acute (2) Methadone maintenance therapy patient Status: Chronic (3) Nicotine dependence Status: Acute Qualifiers: Nicotine product type: cigarettes Substance use status: in withdrawal Qualified Code(s): F17.213 - Nicotine dependence, cigarettes, with withdrawal (4) GERD (gastroesophageal reflux disease) Status: Chronic Qualifiers: Esophagitis presence: without esophagitis Qualified Code(s): K21.9 - Gastro -esophageal reflux disease without esophagitis (5) Substance-induced sleep disorder Status: Suspected - AMA Did Patient Leave Against Medical Advice: No
== END 2018-06-01 10:18 | disposition home or self-care (01) | DRG 773 ==
LOC: YASAS 11:34 → Y3N 13:48
PROC: HZ2ZZZZ Detoxification Services for Substance Abuse Treatment (ICD-10-PCS; principal; 2018-05-28)
DX: F10.230 Alcohol dependence with withdrawal, uncomplicated (principal); F14.20 Cocaine dependence, uncomplicated; F12.20 Cannabis dependence, uncomplicated; F11.20 Opioid dependence, uncomplicated; F17.213 Nicotine dependence, cigarettes, with withdrawal; F19.282 Other psychoactive substance dependence with psychoactive substance-induced sleep disorder; F41.9 Anxiety disorder, unspecified; F31.9 Bipolar disorder, unspecified; F33.9 Major depressive disorder, recurrent, unspecified; G47.00 Insomnia, unspecified; K21.9 Gastro-esophageal reflux disease without esophagitis; E86.0 Dehydration; I95.9 Hypotension, unspecified; R79.89 Other specified abnormal findings of blood chemistry; Z86.69 Personal history of other diseases of the nervous system and sense organs
CPT/HCPCS: 36415; 80053; 81003; 85027; 86593; 87389; 93005; 93010